=== PATIENT | female | born 1940 | race Caucasian/White ===

== ENCOUNTER 2019-04-18 10:16 | Outpatient (CLI) | payer MEDICARE, BC, SELFPAY ==
[2019-04-18 13:41] LABS: Alanine Aminotransferase 13 U/L (4-35); Albumin Level 4.1 g/dL (3.5-5.1); Alkaline Phosphatase 71 U/L (38-126); Aspartate Amino Transferase 22 U/L (14-36); Bilirubin,Total 0.6 mg/dL (0.2-1.3); Blood Urea Nitrogen 14 mg/dL (7-17); Calcium 9.6 mg/dL (8.4-10.2); Carbon Dioxide 24 mmol/L (22-30); Chloride 103 mmol/L (98-107); Cholesterol 214 mg/dL (0-200); Estimated Glomerular Filt Rate > 60; Glucose 102 mg/dL (65-105); HDL Direct 103 mg/dL; Potassium 4.4 mmol/L (3.4-5.0); Sodium 138 mmol/L (137-145); Triglycerides 65 mg/dL (<150)
[2019-04-18 13:52] LABS: LDL Cholesterol Direct 106 mg/dL
[2019-04-18 13:56] LABS: Vitamin D 25 Hydroxy 57.8 ng/mL
== END 2019-04-18 10:17 | disposition home or self-care (01) ==
LOC: ANHWCLAB 10:20
PROVIDERS: PCP Internal Medicine; Referring Provider Internal Medicine; Visit Provider Nurse Practitioner
DX: E78.5 Hyperlipidemia, unspecified (principal); E55.9 Vitamin D deficiency, unspecified; I10 Essential (primary) hypertension; Z51.81 Encounter for therapeutic drug level monitoring; Z79.891 Long term (current) use of opiate analgesic
CPT/HCPCS: 36415; 80053; 80061; 82306

== ENCOUNTER 2020-06-11 09:49 | Outpatient (CLI) | payer MEDICARE, BC, SELFPAY ==
[2020-06-11 10:39] LABS: Alanine Aminotransferase 11 U/L (4-35); Albumin Level 4.2 g/dL (3.5-5.1); Alkaline Phosphatase 73 U/L (38-126); Anion Gap 5 mmol/L (8-16); Aspartate Amino Transferase 22 U/L (14-36); Bilirubin,Total 0.6 mg/dL (0.2-1.3); Blood Urea Nitrogen 14 mg/dL (7-17); Calcium 9.1 mg/dL (8.4-10.2); Carbon Dioxide 28 mmol/L (22-30); Chloride 105 mmol/L (98-107); Cholesterol 233 mg/dL (0-200); Estimated Glomerular Filt Rate > 60; Glucose 108 mg/dL (65-105); HDL Direct 105 mg/dL; Potassium 4.3 mmol/L (3.4-5.0); Sodium 138 mmol/L (137-145); Triglycerides 73 mg/dL (<150)
[2020-06-11 10:50] LABS: LDL Cholesterol Direct 92 mg/dL
== END 2020-06-11 09:50 | disposition home or self-care (01) ==
LOC: ANHLAB 10:05
PROVIDERS: PCP Internal Medicine; Visit Provider Nurse Practitioner
DX: Z78.0 Asymptomatic menopausal state (principal); E78.5 Hyperlipidemia, unspecified; F32.9 Major depressive disorder, single episode, unspecified
CPT/HCPCS: 36415; 80053; 80061; 84443

== ENCOUNTER 2020-07-04 15:18 | Outpatient (CLI) | payer MEDICARE, BC, SELFPAY ==
--- NOTE | ~2020-07-04 | MM_ITS ---
EXAMINATION: MM screening [facility] BI w gabrielle HISTORY: Screening mammogram TECHNIQUE: Craniocaudal and mediolateral oblique 3-D tomosynthesis images were obtained and synthetic 2-D images were generated. CAD analysis was submitted and interpreted. COMPARISON: 02/09/2018, 02/14/2016, 02/05/2016, 01/30/2015 BREAST PARENCHYMAL COMPOSITION: The breasts are almost entirely fatty. FINDINGS: RIGHT BREAST: There is no evidence of suspicious mass, calcification, or architectural distortion to suggest malignancy. There has been no significant interval change. LEFT BREAST: There are grouped indeterminate calcifications in the middle third of the lower breast a t the 6:00 location 8 cm from the nipple. IMPRESSION: 1. Indeterminate left breast calcifications. 2. Magnification views are recommended. BI-RADS Category 0: Incomplete: Needs additional imaging evaluation. Reviewed, dictated and finalized at location A.
== END 2020-07-04 15:19 | disposition home or self-care (01) ==
LOC: ANHIMG 15:19
PROVIDERS: PCP Internal Medicine; Visit Provider Internal Medicine
DX: Z12.31 Encounter for screening mammogram for malignant neoplasm of breast (principal); R92.8 Other abnormal and inconclusive findings on diagnostic imaging of breast
CPT/HCPCS: 77063; 77067

== ENCOUNTER 2020-08-03 13:02 | Outpatient (CLI) | payer MEDICARE, BC, SELFPAY ==
--- NOTE | ~2020-08-03 | MMUS_ITS ---
EXAMINATION: MM diagnostic mammo unilat LT, US breast LT limited HISTORY: Left breast calcification follow-up TECHNIQUE: Additional 3-D ML tomosynthesis images of left breast were performed and synthetic 2-D kristel ges were generated. Magnification ML, MLO and craniocaudal views. CAD analysis was submitted and inte rpreted. High resolution lower outer and lower inner quadrant and left breast ultrasound was performe d. COMPARISON: 07/04/2020 bilateral digital screening mammogram BREAST PARENCHYMAL COMPOSITION: The breasts are almost entirely fatty. FINDINGS: MAMMOGRAPHIC FINDINGS: Occasional benign calcifications are noted. There is a circumscribed approximately 5.5 mm opacity in the lower mid left breast. ULTRASOUND: 5:00 5 cm from nipple: 3.4 x 5 x 6.1 mm sonolucency consistent with simple cyst. No suspicious mass or shadowing is detected. IMPRESSION: 1. Benign finding; no mammographic evidence of malignancy 2. Routine mammographic screening is recommended. BI-RADS Category 2: Benign finding(s). Reviewed, dictated and finalized at location A. IMPRESSION: 1. Benign finding; no mammographic evidence of malignancy 2. Routine mammographic screening is recommended. BI-RADS Category 2: Benign finding(s).
== END 2020-08-03 13:03 | disposition home or self-care (01) ==
PROVIDERS: PCP Internal Medicine; Visit Provider Nurse Practitioner
DX: R92.8 Other abnormal and inconclusive findings on diagnostic imaging of breast (principal)
CPT/HCPCS: 76642; 77065

== ENCOUNTER 2020-12-20 09:06 | Outpatient (CLI) | payer MEDICARE, BC, SELFPAY ==
[2020-12-20 12:36] LABS: Alanine Aminotransferase 12 U/L (4-35); Albumin Level 4.1 g/dL (3.5-5.1); Alkaline Phosphatase 69 U/L (38-126); Anion Gap 8 mmol/L (8-16); Aspartate Amino Transferase 22 U/L (14-36); Bilirubin,Total 0.7 mg/dL (0.2-1.3); Blood Urea Nitrogen 12 mg/dL (7-17); Calcium 9.6 mg/dL (8.4-10.2); Carbon Dioxide 25 mmol/L (22-30); Chloride 103 mmol/L (98-107); Cholesterol 216 mg/dL (0-200); Estimated Glomerular Filt Rate > 60; Glucose 110 mg/dL (65-110); HDL Direct 99 mg/dL; Potassium 4.3 mmol/L (3.4-5.0); Sodium 136 mmol/L (137-145); Triglycerides 66 mg/dL (<150)
[2020-12-20 12:47] LABS: LDL Cholesterol Direct 99 mg/dL
[2020-12-20 12:53] LABS: Vitamin D 25 Hydroxy 85.9 ng/mL
== END 2020-12-20 09:07 | disposition home or self-care (01) ==
LOC: ANHWCLAB 09:11
PROVIDERS: PCP Internal Medicine; Visit Provider Internal Medicine
DX: E55.9 Vitamin D deficiency, unspecified (principal); E78.5 Hyperlipidemia, unspecified; I10 Essential (primary) hypertension; Z79.899 Other long term (current) drug therapy
CPT/HCPCS: 36415; 80053; 80061; 82306

== ENCOUNTER 2021-07-29 10:33 | Outpatient (CLI) | payer MEDICARE, BC, SELFPAY ==
[2021-07-29 13:11] LABS: Appearance Urine Slightly Cloudy (Clear); Bilirubin Urine Negative (Negative); Blood Urine Negative (Negative); Color Urine Yellow (Yellow); Glucose Urine UA Negative (Negative); Ketones Urine Trace mg/dL (Negative); Leukocyte Esterase Ur 1+ LEU/UL (Negative); Nitrate Urine Positive (Negative); Protein Urine Negative (Negative); Specific Grav Ur 1.025 (1.001-1.035); pH Urine 6.5 (5.0-9.0)
[2021-07-29 13:16] LABS: Bacteria Urine Trace /hpf; Mucus Urine Rare /lpf; Squamous Epithelial Cell Urine Occasional /hpf (Few)
[2021-07-29 13:17] LABS: Add Urine Microscopic? YES
[2021-07-29 13:26] LABS: Alanine Aminotransferase 12 U/L (6-35); Alkaline Phosphatase 81 U/L (38-126); Anion Gap 6 mmol/L (8-16); Aspartate Amino Transferase 22 U/L (14-36); Bilirubin,Total 0.7 mg/dL (0.2-1.3); Blood Urea Nitrogen 15 mg/dL (7-17); Calcium 8.9 mg/dL (8.4-10.2); Carbon Dioxide 25 mmol/L (22-30); Chloride 104 mmol/L (98-107); Cholesterol 232 mg/dL (0-200); Estimated Glomerular Filt Rate > 60; Glucose 115 mg/dL (65-110); HDL Direct 106 mg/dL; Potassium 4.4 mmol/L (3.4-5.0); Sodium 135 mmol/L (137-145); Triglycerides 64 mg/dL (<150)
[2021-07-29 13:27] LABS: Albumin Level 4.5 g/dL (3.5-5.1)
[2021-07-29 13:35] LABS: LDL Cholesterol Direct 89 mg/dL
== END 2021-07-29 10:34 | disposition home or self-care (01) ==
LOC: ANHWCLAB 10:38
PROVIDERS: PCP Internal Medicine; Visit Provider Nurse Practitioner
DX: R39.15 Urgency of urination (principal); E78.5 Hyperlipidemia, unspecified
CPT/HCPCS: 36415; 80053; 80061; 81001; 87077; 87086; 87186

== ENCOUNTER 2022-03-27 10:15 | Emergency (ER) | payer MEDICARE, BC, SELFPAY ==
--- NOTE | 2022-03-27 10:18 | ED.UPPEXIN ---
HPI - Extremity Injury (Upper) General Chief Complaint: Extremity Injury, Upper Stated Complaint: R ARM PAIN Time Seen by Provider: 03/27/22 10:19 Source: patient and RN notes reviewed History of Present Illness HPI narrative: Patient is an 82-year-old female who presents to urgent care with complaints right pain near the right elbow. Patient states that she has seen some redness and swelling. Patient states that has been ongoing for several days and reports no associated symptoms or trauma. Patient states that she can not move the arm without any pain or discomfort however leaning on the arm causes exacerbated pain. Patient denies of any falls. States that she has taken Tylenol this morning. Patient does admit to sitting in the recliner most days with her arm on the arm rest. No other acute complaints. No acute distress noted. Patient aware of the plan of care. Some parts of this dictation were generated by voice recognition software and may contain typographical and/or grammatical inaccuracies. Related Data Home Medications Medication Instructions Recorded Confirmed cholecalciferol (vitamin D3) 25 25 mcg PO DAILY 04/11/19 03/27/22 mcg (1,000 unit) tablet cyanocobalamin (vitamin B-12) 1,000 mcg PO DAILY 04/11/19 03/27/22 1,000 mcg capsule lactobacillus combination no.8 3 3,000 mmu cells PO DAILY 04/11/19 03/27/22 billion cell capsule (Adult Probiotic) cranberry 500 mg capsule 500 mg PO DAILY 12/25/20 03/27/22 Allergies Allergy/AdvReac Type Severity Reaction Status Date / Time hydrocodone AdvReac Severe Nausea and Verified 03/27/22 10:28 Vomiting Review of Systems Review of Systems: CONSTITUTIONAL: Denies fever, chills, or sweats. EYES: Denies visual changes, redness, or discharge. ENT: Denies rhinorrhea, congestion, sore throat, or otalgia. CARDIOVASCULAR: Denies chest pain, palpitations, or edema. RESPIRATORY: Denies cough or dyspnea. GASTROINTESTINAL: Denies abdominal pain, nausea, vomiting, or diarrhea. GENITOURINARY: Denies dysuria or hematuria. SKIN: Denies rash or itching. MUSCULOSKELETAL: Reports of redness and pain to the right arm NEUROLOGIC: Denies headache, numbness, or weakness. All other systems reviewed are negative, except as documented in HPI. [facility] Past Medical History Medical History COVID-19 Depression Hx of colonic polyp Postmenopausal Screening for breast cancer Family History Family History Sibling Family history of throat cancer Patient's sister is in good health Patient's brother is in good health Patient's brother is Father Carcinoma of colon Patient's father is Mother Family history of lung cancer Patient's mother is Social History Social History (Updated 02/05/22 @ 10:23 by JOSUE Babin) Smoking status: Never smoker Second hand tobacco smoke exposure: No Alcohol intake: current Drinks per week: 12 Substance use: never Substance use type: does not use Lack of Transportation: No Lack of Food: Never True Current Housing: I Have Housing Concerned About Future Housing: No Difficulty Paying Gas/Electric Bills: No Difficulty Paying for Meds: No Currently Unemployed: No Education: High School Diploma/GED Difficulty w/ Childcare or Family Care: No Comments At the time of my signature, I reviewed and agree with the nursing past medical, surgical, social, and family history. There is no relevant family history pertinent to the patient complaint. Exam Narrative: GENERAL: This is a well-nourished, well-developed patient, in no apparent distress. HEAD: normocephalic, atraumatic. EYES: PERRL. Sclera clear/white. Vision is grossly intact. EARS: External ears normal NOSE: External nose normal with no obvious nasal discharge, nares without
[2022-03-27 10:31] VITALS: BP 149/88; PULSE 86; RESP 16; TEMP 35.6; O2SAT 98
== END 2022-03-27 11:05 | disposition home or self-care (01) ==
PROVIDERS: Emergency Provider Nurse Practitioner Family; PCP Internal Medicine
DX: M79.601 Pain in right arm (principal); Z86.16 Personal history of COVID-19
CPT/HCPCS: 99213; G0463

== ENCOUNTER 2022-08-12 09:31 | Outpatient (CLI) | payer MEDICARE, BC, SELFPAY ==
[2022-08-12 17:13] LABS: Alanine Aminotransferase 16 U/L (6-35); Albumin Level 4.2 g/dL (3.5-5.1); Alkaline Phosphatase 74 U/L (38-126); Anion Gap 5 mmol/L (8-16); Aspartate Amino Transferase 44 U/L (14-36); Bilirubin,Total 0.7 mg/dL (0.2-1.3); Blood Urea Nitrogen 14 mg/dL (7-17); Calcium 8.8 mg/dL (8.4-10.2); Carbon Dioxide 26 mmol/L (22-30); Chloride 101 mmol/L (98-107); Cholesterol 206 mg/dL (0-200); Estimated Glomerular Filt Rate > 60; Glucose 97 mg/dL (65-110); HDL Direct 107 mg/dL; Potassium 4.4 mmol/L (3.4-5.0); Sodium 132 mmol/L (137-145); Triglycerides 61 mg/dL (<150)
[2022-08-12 17:23] LABS: LDL Cholesterol Direct 81 mg/dL
[2022-08-12 17:26] LABS: Vitamin D 25 Hydroxy 48.6 ng/mL
[2022-08-12 19:13] LABS: Appearance Urine Clear (Clear); Bilirubin Urine Negative (Negative); Blood Urine Trace-lysed (Negative); Color Urine Yellow (Yellow); Glucose Urine UA Negative (Negative); Ketones Urine Negative (Negative); Nitrate Urine Positive (Negative); Protein Urine Negative (Negative); Specific Grav Ur 1.025 (1.001-1.035); Urobilinogen Urine 0.2 mg/dL (<2.0)
[2022-08-12 19:22] LABS: Add Urine Microscopic? YES
[2022-08-12 19:24] LABS: Leukocyte Esterase Ur 2+ LEU/UL (Negative)
[2022-08-12 19:26] LABS: WBC Urine 31-50 /hpf (0-3)
[2022-08-12 19:27] LABS: Squamous Epithelial Cell Urine Rare /hpf (Few)
[2022-08-12 19:28] LABS: Bacteria Urine 4+ /hpf
== END 2022-08-12 09:32 | disposition home or self-care (01) ==
LOC: ANHWCLAB 09:33
PROVIDERS: PCP Internal Medicine; Visit Provider Nurse Practitioner
DX: E78.5 Hyperlipidemia, unspecified (principal); F32.9 Major depressive disorder, single episode, unspecified; E53.8 Deficiency of other specified B group vitamins; E55.9 Vitamin D deficiency, unspecified; R39.9 Unspecified symptoms and signs involving the genitourinary system
CPT/HCPCS: 36415; 80053; 80061; 81001; 82306; 82607; 84443; 87077; 87086; 87186

== ENCOUNTER 2023-01-23 10:05 | Outpatient (CLI) | payer MEDICARE, BC, SELFPAY ==
[2023-01-23 11:43] LABS: Appearance Urine Cloudy (Clear); Bacteria Urine 4+ /hpf; Bilirubin Urine Negative (Negative); Blood Urine Negative (Negative); Color Urine Yellow (Yellow); Glucose Urine UA Negative (Negative); Ketones Urine Trace mg/dL (Negative); Leukocyte Esterase Ur 1+ LEU/UL (Negative); Nitrate Urine Negative (Negative); Non Pathogenic Casts 0-2; Protein Urine Negative (Negative); RBC Urine 0-2 /hpf (0-2); Squamous Epithelial Cell Urine Occasional /hpf (Few); pH Urine 5.5 (5.0-9.0)
[2023-01-23 11:49] LABS: Add Urine Microscopic? YES
== END 2023-01-23 10:06 | disposition home or self-care (01) ==
PROVIDERS: PCP Family Medicine; Visit Provider Nurse Practitioner
DX: R39.9 Unspecified symptoms and signs involving the genitourinary system (principal)
CPT/HCPCS: 81001; 87077; 87086; 87186

== ENCOUNTER 2023-04-01 11:26 | Outpatient (CLI) | payer MEDICARE, BC, SELFPAY ==
[2023-04-01 16:39] LABS: Hematocrit 48.5 % (37.0-47.0); Hemoglobin 15.5 g/dL (12.0-15.0); Mean Corpuscular Hemoglobin 30.8 pg (26-34); Mean Corpuscular Volume 96.2 fl (80-100); Mean Platelet Volume 11.2 fl (7.4-10.4); Platelet Count Result 220 k/mm3 (150-375); Red Blood Count 5.04 M/mm3 (4.2-5.4); Red Cell Distribution Width 14.2 % (11.5-14.5); White Blood Count 5.5 K/mm3 (4.5-10.0)
[2023-04-01 16:42] LABS: Appearance Urine Cloudy (Clear); Bacteria Urine 4+ /hpf; Bilirubin Urine Negative (Negative); Blood Urine Negative (Negative); Color Urine Yellow (Yellow); Glucose Urine UA Negative (Negative); Ketones Urine Negative (Negative); Leukocyte Esterase Ur 1+ LEU/UL (Negative); Nitrate Urine Negative (Negative); Non Pathogenic Casts 0-2; Protein Urine Negative (Negative); RBC Urine 0-2 /hpf (0-2); Specific Grav Ur 1.017 (1.001-1.035); Squamous Epithelial Cell Urine None seen /hpf (Few); pH Urine 6.5 (5.0-9.0)
[2023-04-01 17:10] LABS: Add Urine Microscopic? YES
[2023-04-01 18:22] LABS: Vitamin D 25 Hydroxy 41.9 ng/mL
[2023-04-01 18:35] LABS: LDL Cholesterol Direct 93 mg/dL
[2023-04-01 19:06] LABS: Alanine Aminotransferase 11 U/L (6-35); Albumin Level 4.1 g/dL (3.5-5.1); Alkaline Phosphatase 79 U/L (38-126); Anion Gap 6 mmol/L (8-16); Aspartate Amino Transferase 48 U/L (14-36); Bilirubin,Total 0.6 mg/dL (0.2-1.3); Blood Urea Nitrogen 11 mg/dL (7-17); Calcium 9.2 mg/dL (8.4-10.2); Carbon Dioxide 25 mmol/L (22-30); Chloride 102 mmol/L (98-107); Cholesterol 229 mg/dL (0-200); Estimated Glomerular Filt Rate > 60; Glucose 98 mg/dL (65-110); Potassium 4.3 mmol/L (3.4-5.0); Sodium 133 mmol/L (137-145); Triglycerides 80 mg/dL (<150)
[2023-04-01 19:58] LABS: HDL Direct 115 mg/dL
== END 2023-04-01 11:27 | disposition home or self-care (01) ==
LOC: ANHWCLAB 11:26
PROVIDERS: PCP Nurse Practitioner; Visit Provider Nurse Practitioner
DX: E78.5 Hyperlipidemia, unspecified (principal); N39.0 Urinary tract infection, site not specified; E53.8 Deficiency of other specified B group vitamins; E55.9 Vitamin D deficiency, unspecified
CPT/HCPCS: 36415; 80053; 80061; 81001; 82306; 82607; 85027; 87077; 87086; 87186

== ENCOUNTER 2023-04-10 15:32 | Emergency (ER) | payer MEDICARE, BC, SELFPAY ==
[2023-04-10] VITALS (24 sets, daily range): BP systolic 160–188; BP diastolic 78–101; PULSE 67–82; RESP 11–23; TEMP 36.4–37; O2SAT 92–99
--- NOTE | ~2023-04-10 | XR_ITS ---
EXAM: XR wrist RT 2V DATE: 04/10/2023 22:08 HISTORY: post reduction . COMPARISON: Same date at 7:15 PM. FINDINGS: Interval cast removal. Persistent 3 mm lateral displacement, 5 mm posterior displacement, and 13 mm posterior angulation of the comminuted, intra-articular, distal right radial fracture. Unch anged mildly distracted ulnar styloid fracture. IMPRESSION: Comminuted, intra-articular distal right radial fracture with mild persistent lateral dis placement, posterior displacement, and posterior angulation. Unchanged ulnar styloid fracture. Reviewed, dictated and finalized at location K. PACKER IMPRESSION: Comminuted, intra-articular distal right radial fracture with mild persistent lateral displacement, posterior displacement, and posterior angulati on. Unchanged ulnar styloid fracture.
--- NOTE | ~2023-04-10 | XR_ITS ---
EXAM: XR wrist RT min 3V, XR hand RT min 3V, XR forearm RT 2V DATE: 04/10/2023 19:17 HISTORY: trauma, fall . COMPARISON: None available. FINDINGS: Osseous detail obscured by cast material. Comminuted, intra-articular fracture of the dist al right radius, with 10 mm posterior displacement, 5 mm lateral displacement, and 20 degrees posteri or angulation. Mildly distracted ulnar styloid fracture. Scattered osteoarthritic changes, most sever e at the first carpal metacarpal joint. IMPRESSION: Comminuted, displaced and angulated intra-articular fracture of the distal right radius. Mildly distracted right ulnar styloid fracture. Reviewed, dictated and finalized at location K. RCOACH OPERATOR IMPRESSION: Comminuted, displaced and angulated intra-articular fracture of the distal righ t radius. Mildly distracted right ulnar styloid fracture. IMPRESSION: Comminuted, displaced and angulated intra-articular fracture of the distal righ t radius. Mildly distracted right ulnar styloid fracture.
--- NOTE | 2023-04-10 18:49 | ED.UPPEXIN ---
HPI - Extremity Injury (Upper) General Chief Complaint: Extremity Injury, Upper Stated Complaint: right wrist FX Time Seen by Provider: 04/10/23 18:46 History of Present Illness HPI narrative: Patient is an 83 year old female with history of depression, HLD, HTN, here with right wrist injury. She notes that around 1:00 p.m. today she was moving an area rug in her home when she fell backwards, landing down on to her right wrist. She denies any head trauma. She denies any blood thinner use. She noted immediate deformity to her right wrist. She went to a [facility] urgent care who performed x-rays, noted that both bones in her wrist were broken and displaced and told her she needed to come to the emergency department to get surgery performed. Splint was placed at urgent care. Patient denies any open wounds on the wrist. She endorses normal sensation and movement in her hand. Related Data Home Medications Medication Instructions Recorded Confirmed lactobacillus combination no.8 3 3,000 mmu cells PO DAILY 04/11/19 03/20/23 billion cell capsule (Adult Probiotic) ibuprofen 200 mg capsule (Motrin 200 mg PO BID PRN 08/14/22 03/20/23 IB) lidocaine HCl 4 % topical cream 1 applic topical BID 08/14/22 03/20/23 (Aspercreme (lidocaine HCl)) melatonin 5 mg capsule 5 mg PO DAILY 08/14/22 03/20/23 Allergies Allergy/AdvReac Type Severity Reaction Status Date / Time hydrocodone AdvReac Severe Nausea and Verified 04/10/23 18:24 Vomiting Review of Systems Review of Systems: All systems reviewed & are unremarkable except as noted in HPI and below PMFSH Past Medical History Medical History COVID-19 Depression Hx of colonic polyp Postmenopausal Screening for breast cancer Family History Family History Sibling Family history of throat cancer Patient's sister is in good health Patient's brother is in good health Patient's brother is Father Carcinoma of colon Patient's father is Mother Family history of lung cancer Patient's mother is Social History Social History Smoking status: Never smoker Second hand tobacco smoke exposure: No Alcohol intake: current Drinks per week: 7 Alcohol use details: wine Substance use: never Substance use type: does not use Lack of Transportation: No Lack of Food: Never True Current Housing: I Have Housing Concerned About Future Housing: No Difficulty Paying Gas/Electric Bills: No Difficulty Paying for Meds: No Currently Unemployed: No Education: High School Diploma/GED Difficulty w/ Childcare or Family Care: No Exam Narrative: GENERAL: Well-appearing, well-nourished, and in no acute distress. HEAD: Normocephalic, atraumatic. EYES: PERRLA and EOMI. ENT: Nares clear. Mucous membranes moist. NECK: Supple. CHEST: Clear to auscultation. No respiratory distress. HEART: Regular rate and rhythm. Normal peripheral pulses. ABDOMEN: Soft, nontender, nondistended. EXTREMITIES: Decreased range of motion of the right wrist due to pain. Diffuse tenderness throughout the wrist with ecchymosis and edema present. Ecchymosis seems to extend into the lateral aspect of her hand over the 5th metacarpal. Strong radial pulse palpated. Normal sensation and capillary refill in the hand. Elbow nontender, shoulder nontender. No additional extremity injuries appreciated. SKIN: Warm, dry, no rash. NEURO: No focal deficits. Alert and oriented x3. PSYCH: Normal mood and affect. Course Course Emergency Course: Chart review performed. Patient here after a trip and fall injuring her right wrist. Reportedly went to [facility] urgent care and they told her she needed surgery and sent her here. Triage vitals show HTN, otherwise normal. PCP note from 03/20/23
[2023-04-10] MEDS: ONDANSETRON HCL ODT 4 MG TABLET PO (19:30)
[2023-04-10] MEDS: HYDROcodone/acetaminophen (*CRX) 5-325 MG TABLET 1 TAB PO (19:31)
[2023-04-10] MEDS: PROPOFOL IV EMULSION 200 MG/20 ML VIAL 70 MG IV PUSH (21:42)
[2023-04-10] MEDS: SODIUM CHLORIDE 0.9% IV 1,000 ML 1000 ML (21:55)
[2023-04-10] MEDS: fentaNYL CITRATE INJ (*CRX) 100 MCG/2 ML VIAL 50 MCG IV PUSH (22:00)
--- NOTE | 2023-05-07 15:14 | PC.NURSE ---
LATE ENTRY This note is being entered to document information to the patient's record. The following information was omitted on [04/10/2023], by [Apoorva oRb RN]. following chart review, to clarify, MD Dr. Mac administered Propofol 90mg IVP @2142.
== END 2023-04-10 23:01 | disposition home or self-care (01) ==
PROVIDERS: Emergency Provider Student in an Organized Health Care Education/Training Program; PCP Nurse Practitioner
DX: S52.531A Colles' fracture of right radius, initial encounter for closed fracture (principal); S52.611A Displaced fracture of right ulna styloid process, initial encounter for closed fracture; E78.5 Hyperlipidemia, unspecified; I10 Essential (primary) hypertension; W18.39XA Other fall on same level, initial encounter; Y92.009 Unspecified place in unspecified non-institutional (private) residence as the place of occurrence of the external cause
CPT/HCPCS: 25624; 73090; 73100; 73110; 73130; 99285; A9270; J2704; J3010; J7030

== ENCOUNTER 2023-04-13 11:50 | Outpatient (CLI) | payer MEDICARE, BC, SELFPAY ==
--- NOTE | ~2023-04-13 | CT_ITS ---
EXAMINATION: CT wrist RT wo con DATE: 04/13/2023 12:16 INDICATION: Right wrist pain with recent fracture TECHNIQUE: High resolution computed tomography (CT) of the right wrist was performed without intraven ous contrast. Additional sagittal and coronal reconstructions were performed. Automated exposure cont rol and iterative reconstruction technique were employed. The dose-length product was 450.96 mGy-cm. COMPARISON: None FINDINGS: There is a comminuted intra-articular fracture of the distal right radius. The distal fragments are d isplaced approximately 1 cm dorsal and 5 mm radial displacement. There is also dorsal impaction with approximately 25 degrees dorsal tilt of the majority of the distal articular surface. There is no sig nificant fracture gap or incongruity along the intra-articular fracture line which crosses the lunate fossa. Fracture fragment comprising the volar side of the metaphyseal fragment situated between the main proximal fragment in the distal articular surface containing fragment. This fragment is angulate d dorsally but remains nondisplaced relative to the both the main proximal and distal fragments. Ther e is mild distraction of a posterior fracture arising from the ulnar styloid process. 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 Severe osteoarthritis at the first carpometacarpal joint and moderate osteoarthritis at the triscaph e and first, second and fifth metacarpophalangeal joints. Mild osteoarthritis at many of the remainin g joints in the visualized hand and wrist. IMPRESSION: 1. Comminuted intra-articular fracture of the distal right radius. 2. Minimally distracted ulnar styloid avulsion fracture. 3. 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 4. 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 Reviewed, dictated and finalized at location A. ION USHER IMPRESSION: 1. Comminuted intra-articular fracture of the distal right radius. 2. Minimally distracted ulnar styloid avulsion fracture. 3. 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 4. 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
== END 2023-04-13 11:51 | disposition home or self-care (01) ==
PROVIDERS: PCP Nurse Practitioner; Visit Provider Orthopaedic Surgery
DX: M19.031 Primary osteoarthritis, right wrist (principal)
CPT/HCPCS: 73200

== ENCOUNTER 2024-04-08 10:44 | Outpatient (CLI) | payer MEDICARE, BC, SELFPAY ==
--- OUTSIDE RECORDS SUMMARY | 2024-04-08 10:56 | XMS_ITS | Clinical Summary ---
Author Organization [facility] [employer] Address [address] [place] [address] Care Team Providers Care Homebound Teacher Name Role Phone Lani Chirinos MD Primary Care Provider [phone] Williams Adorno MD Unavailable [phone] Source Comments [facility],non-owned Affiliates and Associated Physician Practices is amultiple site organization consisting of ambulatory clinics and hospital sitesin [place], [place], [place] and [place]. This disclosure is being madepursuant to the Care Everywhere program and may not contain all information available regarding this patient. Last updated 17.[facility] [employer] Allergies Active Allergy Reactions Criticality Noted Date Comments Hydrocodone Nausea and/or Vomiting 02/11/2013 Medications * Be aware that medications may not be up to date on this document. Alwaysverify current medications with the patient. Medication Sig Dispensed Refills Start Date End Date Status lansoprazole, disintegrating, (PREVACID SOLUTAB) 30 MG tablet Take 30 mg by mouth 2 times daily,before breakfast and supper. Take morning of surgery Active citalopram (CELEXA) 20 MG tablet Take 20 mg by mouth once daily. Active rosuvastatin (CRESTOR) 5 MG tablet Take 5 mg by mouth at bedtime. Active losartan (COZAAR) 25 MG tablet Take 25 mg by mouth at bedtime. Active SUMAtriptan (IMITREX) 25 MG tablet Take 25 mg by mouth once as needed. Active Probiotic Product (PROBIOTIC DAILY PO) Take by mouth. Active Cholecalciferol (D3 ADULT PO) Take 1,000 Units by mouth. Stop 10 days before surgery Active Cyanocobalamin (B-12) 1000 MCG TBCR Take by mouth once daily. Stop 10 days before surgery Active montelukast (SINGULAIR) 10 MG tablet Take 10 mg by mouth at bedtime. Active Carvedilol (COREG PO) Take 12.5 mg by mouth. Active traMADol (ULTRAM) 50 MG tablet Take 1 Tab by mouth every 6 hours as needed. Called to [facility] [phone] 09/07/2013 Active acetaminophen (TYLENOL) 325 MG tablet Take 2 Tabs by mouth every 4 hours as needed. Maximum allowable Acetaminophen amount = 4 Grams (4000 mg) / 24 hours. 09/07/2013 Active celecoxib (CELEBREX) 200 MG capsule Take 1 Cap by mouth 2 times daily. 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 04/01/2013 Overview (05/19/2015): 2015 IMO Updt Social History Tobacco Use Types Packs/Day Years Used Date Smoking Tobacco: Never Smokeless Tobacco: Never Tobacco Cessation:Counseling Given: Yes Alcohol Use Standard Drinks/Week Comments Yes 5.8 (1 standard drink = 0.6 oz p ure alcohol) Sex and Gender Information Value Date Recorded Sex Assigned at Not on file Gender Identity Not on file Sexual Orientation Not on file Last Filed Vital Signs Vital Sign Reading Time Taken Comments Blood Pressure 123/73 09/30/2013 10:13 AM CDT Pulse 74 09/30/2013 10:13 AM CDT Temperature 36.9 C (98.4 F) 09/08/2013 5:19 AM CDT Respiratory Rate 16 09/08/2013 5:19 AM CDT Oxygen Saturation 95% 09/08/2013 5:19 AM CDT Inhaled Oxygen Concentration - - Weight 80.7 kg (178 lb) 09/05/2013 7:04 AM CDT Height 167.6 cm (5' 6 ) 09/05/2013 7:04 AM CDT Body Mass Index 28.73 09/05/2013 7:04 AM CDT Plan of Treatment Health Maintenance Due Date Last Done Comments BONE DENSITY TESTING 1940 MEDICARE AWV 12 MONTHS 1938 DTAP/TDAP/TD VACCINES (1 - Tdap) 1957 PNEUMOCOCCAL VACCINE 50+ (1 of 1 - PCV) 1988 ZOSTER VACCINE (1 of 2) 1988 Respiratory Syncytial Virus (RSV) Vaccine Pt: or over 60 yrs (1 - 1-dose 75+ series) 2013 COVID-19 VACCINE ( - 2023-2 5 season) 2023 INFLUENZA VACCINE (#1) 2023 DEPRESSION SCREENING 02/24/2024 HEPATITIS B VACCINE Aged Out No longe r eligible based on patient's age to complete this topic HIB VACCINE Aged Out No longer eligi ble based on patient's age to complete this topic HPV VACCINE Aged Out No longer eligi ble based on patient's age to complete this topic MENINGOCOCCAL (Group B) VACCINE Aged Out No longer eligible based on patient's age to complete this topic MENINGOCOCCAL VACCINE Aged Out No shawn romeo eligible based on patient's age to complete this topic Medical Devices Implanted Type Area Fire Engine Pump Operator Device Identifier Shelf Expiration Date Model / Serial / Lot Werner Bone [place] Hv Implanted:Qty: 1 on 09/05/2013 by Williams Adorno MD at [facility] Left: [employer]nee [employer] 12/24/2014 [id number] / / [id number] Butn Pat Arcom Wire Polyeth Sm 31 X 8mm Implanted:Qty: 1 on 09/05/2013 by Williams Adorno MD at [facility] Left: [employer]nee [employer] 06/23/2018 [id number] / / [id number] Ins Kn [place]urd Fem Cocr L-Intlok 65.0mm Implanted:Qty: 1 on 09/05/2013 by Williams Adorno MD at [facility] Left: [employer] 06/24/2023 [id number] / / [id number] Ty Tibial I Beam Fix Bar 71mm Implanted:Qty: 1 on 09/05/2013 by Williams Adorno MD at [facility] Left: [employer]nee [employer] 05/25/2023 [id number] / / [id number] Brdg Tib Niurka Stbl Implanted:Qty: 1 on 09/05/2013 by Williams Adorno MD at [facility] Left: [employer]nee [employer] 05/24/2018 [id number] / / [id number] Advance Directives * Full Code (Latest Code Status on File) Date Activated Date Inactivated Comments 09/05/2013 11:43 AM 09/08/2013 1:17 PM Care Teams Homebound Teacher Relationship Specialty Start Date End Date Lani Chirinos MD [address] [place] [phone] PCP - General Family Medicine 02/11/13 [place] [address] [address] Orthopedic Surgery 02/11/13
--- OUTSIDE RECORDS SUMMARY | 2024-04-08 10:56 | XMS_ITS | Encounter Summary ---
Author Organization [facility] Address [address] [place] [address] Care Team Providers Care Community Planner Name Role Phone Lani Chirinos MD Primary Care Provider [phone] Williams Adorno MD Unavailable [phone] Encounter Details Date Type Department Care Team (Late st Contact Info) Description 01/10/2014 Therapy Visit [facility] [address] [facility] [address] [place] [address] [place] [address] [facility] [address] [place] [address] Social History Tobacco Use Types Packs/Day Years Used Date Smoking Tobacco: Never Smokeless Tobacco: Never Alcohol Use Standard Drinks/Week Comments Yes 5.8 (1 standard drink = 0.6 oz p ure alcohol) Sex and Gender Information Value Date Recorded Sex Assigned at Not on file Gender Identity Not on file Sexual Orientation Not on file documented as of this encounter Functional Status Functional Status Response Date of Assess ment Is person deaf or have serious hearing difficult y? No 09/05/2013 Is person blind or have serious difficulty seein g? No 09/05/2013 Does person have serious dif ficulty walking/climbing stairs? No 09/05/2013 Does person have difficulty dressing/bathing? No 09/05/2013 Does person have difficulty doing errands alone? Yes 09/05/2013 Cognitive Status Response Date of Assessm ent Does person have difficulty concentrating/remembering/making decisions? No 09/05/2013 documented as of this encounter Plan of Treatment Not on file documented as of this encounter Visit Diagnoses Not on filedocumented in this encounter Care Teams Community Planner Relationship Specialty Start Date End Date Lani Chirinos MD [address] [place] [phone] PCP - General Family Medicine 02/11/13 [place] [address] [address] Orthopedic Surgery 02/11/13 documented as of this encounter
--- OUTSIDE RECORDS SUMMARY | 2024-04-08 10:56 | XMS_ITS | Referral Summary ---
Author Organization [facility] Address [address] [place] [address] Care Team Providers Care Shaft Tender Name Role Phone Cheikh Pizano Primary Care Provider [phone] Allergies Active Allergy Reactions Criticality Noted Date Comments Derik Inhibitors Cough Low Hydrocodone Nausea only Medium Medications losartan (COZAAR) 25 mg tablet take 1 tablet by oral route every day 0 0 05/13/19 14 Active Additional Information Patient taking differently:25 mgoral Nightly, Indications: hypertension, Informant: Self, Reported on 04/15/2023 lansoprazole (PREVACID) 30 mg capsule take 1 capsule by oral route every day 0 0 05/13/19 14 Active Additional Information Patient taking differently:30 mgoral Nightly, Indications: Treatment of Non-Bleeding Gastric Disorder, Informant: Self, Reported on 04/15/2023 sertraline (ZOLOFT) 25 mg tablet take 1 tablet by oral route every day 0 0 05/21/19 16 Active Additional Information Patient taking differently: 100 mg oral Every morning, Indications: depression, Informant: Self, Reported on 04/15/2023 atorvastatin (LIPITOR) 10 mg tablet take 1 tablet by oral route every day 0 0 06/03/19 17 Active Additional Information Patient taking differently:10 mgoral Nightly, Indications: hyperlipidemia, Informant: Self, Reported on 04/15/2023 carvedilol (COREG) 12.5 mg tablet TAKE 1 TABLET BY MOUTH TWICE A DAY WITH FOOD 180 3 06/28/19 14 Active Additional Information Patient taking differently:12.5 mgoral 2 times daily with meals (bkfst, dinner), Indications: hypertension, Informant: Self, Reported on 04/15/2023 Lactobacillus acidophilus (PROBIOTIC) 10 billion cell capsule 0 0 12/23/19 15 Active Additional Information Patient taking differently: 1 capsule oral Nightly, Indications: supplement, Informant: Self, Reported on 04/15/2023 amoxicillin-clavul anate (AUGMENTIN) 875-125 mg per tabletIndications: Urinary Tract/Genitourinar y Infection Take 1 tablet by mouth 2 (two) times a day Stopped taking 04/05/19 24 Active ondansetron ODT (ZOFRAN-ODT) 4 mg disintegrating tablet Take 1 tablet (4 mg total) by mouth every 8 (eight) hours as needed for vomiting or nausea Only will take if she takes tramadol , has not started 04/11/19 24 Active traMADoL (ULTRAM) 50 mg tablet Take 1 tablet (50 mg total) by mouth every 8 (eight) hours as needed for pain Pt has not taken this yet will only take if needed. NOT STARTED YET 04/11/19 24 Active melatonin 5 mg tabletIndications: sleep Take 1 tablet (5 mg total) by mouth nightly Active methocarbamoL (ROBAXIN) 750 mg tablet Take 1 tablet (750 mg total) by mouth 4 (four) times a day Not taking, never started Active lidocaine HCL 4 % cream Apply topically as needed (pain) Active ibuprofen 200 mg tab/cap Take 2 tablet/capsule (400 mg total) by mouth every 8 (eight) hours as needed for pain Active acetaminophen (TYLENOL) 500 mg tabletIndications: Pain Take 1 tablet (500 mg total) by mouth 3 (three) times a day Active LORazepam (ATIVAN) 0.5 mg tabletIndications: anxiety Take 1 tablet (0.5 mg total) by mouth every 6 (six) hours as needed for anxiety Active docusate sodium (COLACE) 100 mg capsuleIndications :constipation Take 1 capsule (100 mg total) by mouth 2 (two) times a day as needed for constipation Active lisinopriL (PRINIVIL,ZESTRIL) 10 mg tablet Active sertraline (ZOLOFT) 100 mg tablet Take 1 tablet (100 mg total) by mouth daily 05/04/19 24 Active Active Problems Problem Noted Date Diagnosed Date Abdominal pain 06/02/2023 Acquired trigger finger 06/02/2023 Allergic rhinitis 06/02/2023 Anxiety 06/02/2023 Depressive disorder 06/02/2023 Hyperlipidemia 06/02/2023 Involuntary movements 06/02/2023 Palpitations 06/02/2023 Sinusitis 06/02/2023 Upper respiratory infection 06/02/2023 Urinary incontinence 06/02/2023 Urinary tract infectious disease 06/02/2023 Vitamin D deficiency 06/02/2023 Closed fracture of distal end of radius 04/13/19 24 Pain in right hand 04/12/2023 Pure hypercholesterolemia 10/19/2018 Assessment & Plan (10/19/2018 2:28 PM CDT): On chronic lipid lowering therapy with good control. No changes made. 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 She is on the same treatment now. Today's echocardiogram shows no recurrence of cardiomyopathy. Continue current medications. Gastroesophageal reflux disease 12/22/2014 Overview (06/02/2023): GERD Essential hypertension 12/22/2014 Overview (06/02/2023): Hypertension Assessment & Plan (10/19/2018 2:27 PM CDT): Blood pressure is adequately controlled on current regimen. No change was made. Rupture of biceps tendon 10/18/2008 Immunizations Name Administration Dates Next Due Influenza, Quadrivalent, Hig h Dose, Preservative Free, Intrr 11/10/2019 Influenza, Trivalent, Adjuva nted, Intramuscular 12/02/2018 Influenza, Trivalent, High D ose, Split, Preservative Free, Intramuscular 12/16/2017,12/09/2016,12/12/2015,12/20,11/21/2013,11/23/2012 Influenza, Trivalent, IM (MDV) 12/18/2011 Pfizer SARS-CoV-2 Monovalent Vaccination (12+ Yrs) PURPLE 04/27/2020,04/06/2020 Pneumococcal Conjugate PCV 13 12/24/2015 Pneumococcal Polysaccharide PPV23 12/09/2007 Tdap 03/15/2012 ZOSTER LIVE 02/02/2008 Social History Tobacco Use Types Packs/Day Years Used Date Smoking Tobacco: Never Smokeless Tobacco: Never Alcohol Use Standard Drinks/Week Comments Yes 0 (1 standard drink = 0.6 oz pur e alcohol) AUDIT-C Answer Date Recorded Q1: How often do you have a drink containing alcohol? 4 or more times a week 04/15/2023 Q2: How many drinks containi ng alcohol do you have on a typical day when you are drinking? 1 or 2 Q3: How often do you have si x or more drinks on one occasion? Never 04/15/2023 Personal Safety Answer Date Recorded Have you ever been in or are you currently in a harmful physical or emotional relationship or is someone making you feel afraid or unsafe? Denies 04/20/2023 Comments No Sex and Gender Information Value Date Recorded Sex Assigned at Not on file Legal Sex Female 1:19 AM AUTOMOTIVE INSTRUCTOR Gender Identity Not on file Sexual Orientation Not on file Last Filed Vital Signs Vital Sign Reading Time Taken Comments Blood Pressure 131/70 04/20/2023 2:00 PM AUTOMOTIVE INSTRUCTOR Pulse 79 04/20/2023 2:05 PM AUTOMOTIVE INSTRUCTOR Temperature 36.1 C (97 F) 04/20/2023 1:38 PM AUTOMOTIVE INSTRUCTOR Respiratory Rate 10 04/20/2023 2:05 PM AUTOMOTIVE INSTRUCTOR Oxygen Saturation 91% 04/20/2023 2:05 PM AUTOMOTIVE INSTRUCTOR Inhaled Oxygen Concentration - - Weight 72.6 kg (160 lb) 04/15/2023 8:20 AM AUTOMOTIVE INSTRUCTOR Height 165.1 cm (5' 5 ) 04/15/2023 8:20 AM AUTOMOTIVE INSTRUCTOR Body Mass Index 26.63 04/15/2023 8:20 AM AUTOMOTIVE INSTRUCTOR Plan of Treatment Not on file Medical Devices Implanted Type Area Community Coordinator Device Identifier Shelf Expiration Date Model / Serial / Lot [employer] Aptus Trilock [id number] 10 Hole Right Distal Volar Radius A-4750.32 - [id number] Implanted:Qty: 1 on 04/20/2023 by Aiden Victor MD at [facility] [place] Right: Radius [employer] A-4750.32 / / [employer] Aptus 2.5mm 12mm Cortical Screw Bone A-5700.12 - [id number] Implanted:Qty: 3 on 04/20/2023 by Aiden Victor MD at [facility] Right: Radius [employer] A-5700.12 / / [employer] 2.5mm 16mm Trilock Hexadrive Wrist Radius Screw Bone A-5750.16/1 - [id number] Implanted:Qty: 2 on 04/20/2023 by Aiden Victor MD at [facility] [place] Right: Radius [employer] A-5750.16/1 / / [employer] Aptus Trilock 2.5mm 18mm Hexadrive 7 Adaptive Wrist Radius A-5750.18/1 - [id number] Implanted:Qty: 4 on 04/20/2023 by Aiden Victor MD at [facility] [place] Right: Radius [employer] A-5750.18/1 / / Insurance MEDICARE [facility] [employer] MEDICARE [facility] MEDICARE [facility] [employer] Member Subscriber Plan / Payer (Ef fective 2015-Present) Name:Mini Lion Relation to Subscriber:Self Name:Mini Lion Payer ID:[id number] (NAIC) Group ID:[id number] Type:[facility] Address: [address] [place] [id number] Care Teams Shaft Tender Relationship Specialty Start Date End Date Cheikh Pizano DO PCP - General Internal Medicine 10/19/18
--- OUTSIDE RECORDS SUMMARY | 2024-04-08 10:56 | XMS_ITS | Encounter Summary ---
Author Organization [facility] Address [address] [place] [address] Care Team Providers Care Turbine Engineer Name Role Phone Lani Chirinos MD Primary Care Provider [phone] Williams Adorno MD Unavailable [phone] Encounter Details Date Type Department Care Team (Late st Contact Info) Description 09/28/2013 Therapy Visit [facility] [address] [facility] [address] [place] [address] [place] [address] [facility] [address] [place] [address] Social History Tobacco Use Types [...] on filedocumented in this encounter Care Teams Turbine Engineer Relationship Specialty Start Date End Date Lani Chirinos MD [address] [place] [phone] PCP - General Family Medicine 02/11/13 [place] [id number] [address] Orthopedic Surgery 02/11/13 documented as of this encounter
--- OUTSIDE RECORDS SUMMARY | 2024-04-08 10:56 | XMS_ITS | Clinical Summary ---
Author Organization [facility] Address [address] [place] [address] Care Team Providers Care Fiber Machine Tender Name Role Phone Unavailable Primary Care Provider Unavailabl e Social History Tobacco Use Types Packs/Day Years Used Date Smoking Tobacco: Never Assessed Comments Unknown Sex and Gender Information Value Date Recorded Sex Assigned at Not on file Legal Sex Female 8:24 PM CDT Gender Identity Not on file Sexual Orientation Not on file Plan of Treatment Health Maintenance Due Date Last Done Comments DTaP, Tdap and Td Vaccines ( 1 - Tdap) 1957 Zoster Vaccines (1 of 2) 1988 Pneumococcal Vaccine: 65+ Ye ars (1 of 1 - PCV) 2003 RSV Immunization or 60+ Years (1 - 1-dose 75+ series) 2013 COVID-19 Vaccine ( - 2023-2 5 season) 2023 Influenza Adult (#1) 2023 Meningococcal B Vaccine Aged Out No l onger eligible based on patient's age to complete this topic Meningococcal Vaccine Aged Out No shawn romeo eligible based on patient's age to complete this topic RSV Immunizations Under 20 Months Aged Out No longer eligible based on patient's age to complete this topic
--- OUTSIDE RECORDS SUMMARY | 2024-04-08 10:56 | XMS_ITS | Clinical Summary ---
Author Organization [facility] Address [address] [place] [address] Care Team Providers Care Long Wall Shear Operator Name Role Phone Cheikh Pizano Primary Care Provider [phone] Allergies Active Allergy Reactions Criticality Noted Date [...] PPV23 12/09/2007 Tdap 03/15/2012 ZOSTER LIVE 02/02/2008 Surgical History Surgery Date Site/Laterality Comments OTHER SURGICAL HISTORY 02/23/2007 - 02/23/2008 Right ORIF SHOULDER DISLOCATION W/ HUMERAL FRACTURE 02/23/2006 - 02/22/2007 Left Left Arm Broken 2006 TUBAL LIGATION 1975 Bilateral tubal ligation CERVICAL CONIZATION W/ LASER 1966 Conization BREAST BIOPSY 1998 Right Breast Biopsy KNEE ARTHROPLASTY 09/05/2013 Left 2014 CATARACT EXTRACTION Bilateral Cataract extraction Medical History Medical History Date Comments Hypertension Hypertension Hyperlipidemia Hyperlipidemia Asthma Asthma Osteoarthritis Osteoarthritis Hx Other Medical Migraines Hx Other Medical Heartburn/Reflu x Hx Other Medical Anxiety Disorde r Hx Other Medical Laparoscopic tu bal ligation 1975; Comments: LAMIN 12/22/2014 - Hx Other Medical Bilateral knee replacements; Comments: LAMIN 12/22/2014 - Hx Other Medical Open reduction internal fixation left arm; Comments: LAMIN 12/22/2014 - Family History Medical History Relation Name Comments Colon cancer Father Cancer, colon; /Cancer, colon; Breast cancer Father's Sister Cancer, manda ast; Heart disease Maternal Grandfather Heart Disease; Osteoarthritis Maternal Grandmother Osteo arthritis; Brain cancer Mother Brain tumor; Lung cancer Mother Cancer, lung; / Cancer, lung; Cause of : Cancer, lung Other Other Family history of decent [place]; Relation Name Status Comments Father Alive Father's Sister Maternal Grandfather Alive Maternal Grandmother Alive Mother Other Social History Tobacco Use Types Packs/Day Years [...] on file Legal Sex Female 1:19 AM LAND DEVELOPMENT PROJECT MANAGER Gender Identity Not on file Sexual Orientation Not on file Obstetrics History Last Filed Vital Signs Vital Sign Reading Time Taken Comments Blood Pressure 131/70 04/20/2023 2:00 PM LAND DEVELOPMENT PROJECT MANAGER Pulse 79 04/20/2023 2:05 PM LAND DEVELOPMENT PROJECT MANAGER Temperature 36.1 C (97 F) 04/20/2023 1:38 PM LAND DEVELOPMENT PROJECT MANAGER Respiratory Rate 10 04/20/2023 2:05 PM LAND DEVELOPMENT PROJECT MANAGER Oxygen Saturation 91% 04/20/2023 2:05 PM LAND DEVELOPMENT PROJECT MANAGER Inhaled Oxygen Concentration - - Weight 72.6 kg (160 lb) 04/15/2023 8:20 AM LAND DEVELOPMENT PROJECT MANAGER Height 165.1 cm (5' 5 ) 04/15/2023 8:20 AM LAND DEVELOPMENT PROJECT MANAGER Body Mass Index 26.63 04/15/2023 8:20 AM LAND DEVELOPMENT PROJECT MANAGER Plan of Treatment Health Maintenance Due Date Last Done Comments Depression Screening 1938 Hepatitis B Screening 1956 Well Visit 65+ 2003 Zoster Vaccine (2 of 3) 03/29/2008 02/02/2008 DTaP/Tdap/Td Vaccine (2 - Td or Tdap) 03/15/2022 03/15/2012 Covid-19 Vaccine (3 - 2023-2 5 season) 2023 04/27/2020, 04/06/2020 Influenza Vaccine (#1) 2023 0, 12/02/2018, 12/16/2017, Additional history exists Fall Risk Assessment 04/20/2024 04/20/2023 Pneumococcal vaccine 65+ Completed 12/24/2015, 11/23 Medical Devices Implanted Type Area Belt Cutter Device Identifier Shelf Expiration Date Model / Serial / Lot [employer] Aptus Trilock [id number] 10 Hole Right Distal Volar Radius A-4750.32 - [id number] Implanted:Qty: 1 on 04/20/2023 by Aiden Victor MD at [facility] [place] Right: Radius [employer] A-4750.32 / / [employer] Aptus 2.5mm 12mm Cortical Screw Bone A-5700.12 - [id number] Implanted:Qty: 3 on 04/20/2023 by Aiden Victor MD at [facility] [place] Right: Radius [employer] A-5700.12 / / [employer] 2.5mm 16mm Trilock Hexadrive Wrist Radius Screw Bone A-5750.16/1 - [id number] Implanted:Qty: 2 on 04/20/2023 by Aiden Victor MD at [facility] [place] Right: Radius [employer] A-5750.16/1 / / [employer] Aptus Trilock 2.5mm 18mm Hexadrive 7 Adaptive Wrist Radius A-5750.18/1 - [id number] Implanted:Qty: 4 on 04/20/2023 by Aiden Victor MD at [facility] [place] Right: Radius [employer] A-5750.18/1 / / Insurance [facility]ICARE [facility] MEDICARE [facility] FEDERAL MEDICARE [facility] [employer] Care Teams Long Wall Shear Operator Relationship Specialty Start Date End Date Cheikh Pizano DO PCP - General Internal Medicine 10/19/18
--- OUTSIDE RECORDS SUMMARY | 2024-04-08 10:57 | XMS_ITS | Patient Health Summary ---
Author Organization [facility] Address [address] [address] Care Team Providers Care Centrifugal Machine Tender Name Role Phone Lani Chirinos MD Primary Care Provider [phone] Williams Adorno MD Unavailable [phone] Note from [facility],non-owned Affiliates and Associated Physician Practices is amultiple site organization consisting of ambulatory clinics and hospital sitesin [place], [place], [place] and [place]. This disclosure is being madepursuant to the Care Everywhere program and may not contain all information available regarding this patient. Last updated 17.[facility] Allergies * Hydrocodone(Nausea and/or Vomiting) Medications * Be aware that medications may not be up to date on this document. Alwaysverify current medications with the patient. * lansoprazole, disintegrating, (PREVACID SOLUTAB) 30 MG tablet Take 30 mg by mouth 2 times daily,before breakfast and supper. Take morning of surgery * citalopram (CELEXA) 20 MG tablet Take 20 mg by mouth once daily. * rosuvastatin (CRESTOR) 5 MG tablet Take 5 mg by mouth at bedtime. * losartan (COZAAR) 25 MG tablet Take 25 mg by mouth at bedtime. * SUMAtriptan (IMITREX) 25 MG tablet Take 25 mg by mouth once as needed. * Probiotic Product (PROBIOTIC DAILY PO) Take by mouth. * Cholecalciferol (D3 ADULT PO) Take 1,000 Units by mouth. Stop 10 days before surgery * Cyanocobalamin (B-12) 1000 MCG TBCR Take by mouth once daily. Stop 10 days before surgery * montelukast (SINGULAIR) 10 MG tablet Take 10 mg by mouth at bedtime. * Carvedilol (COREG PO) Take 12.5 mg by mouth. * traMADol (ULTRAM) 50 MG tablet(Started 09/07/2013) Take 1 Tab by mouth every 6 hours as needed. Called to [facility] [phone] * acetaminophen (TYLENOL) 325 MG tablet(Started 09/07/2013) Take 2 Tabs by mouth every 4 hours as needed. Maximum allowable Acetaminophen amount = 4 Grams (4000 mg) / 24 hours. * celecoxib (CELEBREX) 200 MG capsule(Started 10/03/2013) Take 1 Cap by mouth 2 times daily. 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 04/01/2013 Social History Tobacco Use Types Packs/Day Years [...] Mass Index 28.73 09/05/2013 7:04 AM CDT Medical Devices Implanted Type Area Social Worker Masters Device Identifier Shelf Expiration Date Model / Serial / Lot Werner Bone [place] Hv Implanted:Qty: 1 on 09/05/2013 by Williams Adorno MD at [facility] Left: Knee Biomet Inc 12/24/2014 [id number] / / [id number] Butn Thuy Arcom Wire Polyeth Sm 31 X 8mm Implanted:Qty: 1 on 09/05/2013 by Williams Adorno MD at [facility] Left: Knee [employer] Inc 06/23/2018 [id number] / / [id number] Ins Kn Vangurd Fem Cocr L-Intlok 65.0mm Implanted:Qty: 1 on 09/05/2013 by Williams Adorno MD at [facility] Left: Knee [employer] Inc 06/24/2023 [id number] / / [id number] Ty Tibial I Beam Fix Bar 71mm Implanted:Qty: 1 on 09/05/2013 by Williams Adorno MD at [facility] Left: Knee [employer] Inc 05/25/2023 [id number] / / [id number] Brdg Tib Niurka Stbl Implanted:Qty: 1 on 09/05/2013 by Williams Adorno MD at [facility] Left: Knee [employer] Inc 05/24/2018 [id number] / / [id number] Procedures * XR KNEE LEFT 3VW(Performed 10/21/2013) Performed for Osteoarthrosis, unspecified whether generalized or localized, lower leg, Aftercare following joint replacement, Knee joint replacement by other means * CARDIAC HOLTER MONITOR ORDER(Performed 09/09/2013) * CARDIAC EKG ORDER(Performed 09/09/2013) * CARDIAC ECHOCARDIOGRAM COMPLETE ORDER(Performed 09/09/2013) * HGB HCT PANEL(Performed 09/07/2013) * HGB HCT PANEL(Performed 09/06/2013) * NEURAXIAL BLOCK(Performed 09/05/2013) * ARTHROPLASTY TOTAL KNEE(Performed 09/05/2013) Performed for Osteoarthrosis, unspecified whether generalized or localized, lower leg * CULTURE MSSA/MRSA(Performed 08/03/2013) Performed for Pre-op testing * COMPREHENSIVE METABOLIC PANEL(Performed 08/03/2013) Performed for Pre-op testing * CBC W AUTO DIFFERENTIAL(Performed 08/03/2013) Performed for Pre-op testing * EKG 12-LEAD(Performed 08/03/2013) Performed for Pre-op testing * CULTURE MSSA/MRSA(Performed 03/22/2013) Performed for Preoperative examination * CBC W AUTO DIFFERENTIAL(Performed 03/22/2013) Performed for Preoperative examination * COMPREHENSIVE METABOLIC PANEL(Performed 03/22/2013) Performed for Preoperative examination * EKG 12-LEAD(Performed 03/22/2013) Performed for Preoperative examination * XR KNEE BILAT 3VW(Performed 02/11/2013) Performed for Pain in joint, lower leg * DERMATOPATHOLOGY(Performed 11/15/2010) * DERMATOPATHOLOGY(Performed 05/23/2010) * DERMATOPATHOLOGY(Performed 04/29/2010) Results * XR KNEE 3 VW LEFT (10/21/2013 9:30 AM CDT) Anatomical Region Laterality Modality Lower Extremity Radiographic Parris ging Narrative 10/21/2013 9:30 AM CDT Anjana Keys, RT(R) 10/21/2013 9:30 AM See progress notes for results Williams Adorno MD DIAGNOSTIC IMAGING O RDERABLES * CARDIAC HOLTER MONITOR ORDER (09/09/2013 10:35 PM CDT) Scanned Document CARDIAC SERVICES ORD ERABLES * CARDIAC EKG ORDER (09/09/2013 10:35 PM CDT) Scanned Document CARDIAC SERVICES ORD ERABLES * CARDIAC ECHOCARDIOGRAM COMPLETE ORDER (09/09/2013 10:35 PM CDT) Scanned Document ECHO ORDERABLES * (ABNORMAL) HGB HCT PANEL (09/07/2013 3:24 AM CDT) Only the most recent of2 resultswithin the time period is included. Hemoglobin 11.6(L) 12.0 - 15.6 gm/dL 09/07/2013 3:39 AM CDT [facility] Hematocrit 34.5(L) 35.9 - 45.5 % 09/07/2013 3:39 AM CDT [facility] Blood BLOOD SPECIMEN / Unknown 09/07/2013 3:24 AM CDT 09/07/2013 3:31 AM CDT Williams Adorno MD LAB - HEMATOLOGY ORD ERABLES [facility] [address] [place] [address] * NEURAXIAL BLOCK (09/05/2013 8:22 AM CDT) Narrative Behzad Wick APRN-HYACINTH - 09/05/2013 8:22 AM CDT Behzad Wick CRNA 09/05/2013 8:22 AM NEURAXIAL BLOCK Patient Location: OR Pre Procedure Indication: at surgeon's request Anticoagulation /Antithrombosis Status Confirmed: Yes Preanesthetic Checklist: patient identified, IV checked, site marked, risks and benefits discussed, surgical consent verified, monitors and equipment checked, pre-op evaluation done, timeout performed, informed consent obtained and questions answered / anesthesia plan accepted Monitors: BP, Pulse Ox, EKG and ETCO2 Patient Condition: sedated, meaningful contact maintained Patient Position: sitting Procedure Block Performed: spinal Prep: Betadine Sterile Field: sterile gloves, sterile field established, cap/hat and mask Approach: midline Skin Numbed with: lidocaine 1% Spinal Needle Type: Chandra Needle Gauge: 22 G Needle Length: 3.5 in Placement Site: L3-4 Number of Attempts: 1 CSF: free flow Local Anesthetic: bupivacaine 0.75% in dextrose 15 mg Events CSF return Degree of Difficulty: none Position Post Procedure: supine Block Performed by: cy Williams Adorno MD GENERAL ANESTHESIA O RDLYNDSEY * CULTURE MSSA/MRSA (08/03/2013 9:22 AM CDT) Only the most recent of2 resultswithin the time period is included. Pathologist [facility] Culture Negative for MRSA/MSSA 08/04/2013 5:47 PM CDT [facility] Microbiology SPECIMEN FROM NASAL FOSSAE / Unknown 08/03/2013 9:22 AM CDT 08/03/2013 9:45 AM CDT Tres Morrissey MD LAB - MICROBIOLOGY O RDLYNDSEY [facility] [address] [place] [address], [facility] * (ABNORMAL) CBC W AUTO DIFFERENTIAL (08/03/2013 9:22 AM CDT) Only the most recent of2 resultswithin the time period is included. Pathologist [facility] WBC 6.6 4.4 - 10.7 x10^9/L 08/03/2013 9:51 AM CDT [facility] RBC 4.90 3.80 - 5.20 x10^12/L 08/03/2013 9:51 AM CDT [facility] Hemoglobin 14.9 12.0 - 15.6 gm/dL 08/03/2013 9:51 AM CDT [facility] Hematocrit 44.0 35.9 - 45.5 % 08/03/2013 9:51 AM CDT [facility] MCV 89.8 80.7 - 98.3 fl 08/03/2013 9:51 AM CDT [facility] MCH 30.4 26.7 - 34.0 pg 08/03/2013 9:51 AM CDT [facility] MCHC 33.9 30.8 - 35.9 gm/dL 08/03/2013 9:51 AM CDT [facility] Platelet Count 203 153 - 416 x10^9/L 08/03/2013 9:51 AM CDT [facility] RDW-CV 14.7 12.1 - 14.9 % 08/03/2013 9:51 AM CDT [facility] MPV 10.7 9.4 - 12.9 fl 08/03/2013 9:51 AM CDT [facility] Neutrophils % 65.6 44.0 - 73.0 % 08/03/2013 9:51 AM CDT [facility] Lymphocytes % 19.7(L) 20.0 - 43.0 % 08/03/2013 9:51 AM CDT [facility] Monocytes % 11.1 5.0 - 13.0 % 08/03/2013 9:51 AM CDT [facility] Eosinophils % 2.0 0.0 - 6.0 % 08/03/2013 9:51 AM CDT [facility] Basophils % 0.5 0.0 - 2.0 % 08/03/2013 9:51 AM CDT [facility] Immature Granulocytes 1.1(H) 0 - 1 % 08/03/2013 9:51 AM CDT [facility] Neutrophil Absolute 4.36 2.01 - 7.14 x10^9/L 08/03/2013 9:51 AM CDT [facility] Lymphocytes Absolute 1.31 1.07 - 3.94 x10^9/L 08/03/2013 9:51 AM CDT [facility] Monocytes Absolute 0.74 0.26 - 1.07 x10^9/L 08/03/2013 9:51 AM CDT [facility] Eosinophils Absolute 0.13 0 - 0.47 x10^9/L 08/03/2013 9:51 AM CDT [facility] Basophils Absolute 0.03 0 - 0.08 x10^9/L 08/03/2013 9:51 AM CDT [facility] Immature Granulocytes Absolute 0.07(H) 0.00 - 0.06 x10^9/L 08/03/2013 9:51 AM CDT [facility] Blood BLOOD SPECIMEN / Unknown 08/03/2013 9:22 AM CDT 08/03/2013 9:45 AM CDT Tres Morrissey MD LAB - HEMATOLOGY ORD ERABLES [facility] [address] [place] [address] * (ABNORMAL) COMPREHENSIVE METABOLIC PANEL (08/03/2013 9:22 AM CDT) Only the most recent of2 resultswithin the time period is included. Glucose 117(H) 74 - 106 mg/dL 08/03/2013 10:08 AM CDT [facility] Sodium 136 136 - 145 mmol/L 08/03/2013 10:08 AM CDT [facility] Potassium 3.9 3.5 - 5.1 mmol/L 08/03/2013 10:08 AM T [facility] Chloride 103 98 - 107 mmol/L 08/03/2013 10:08 AM T [facility] CO2 25 22 - 31 mmol/L 08/03/2013 10:08 AM CDT [facility] Calcium 9.1 8.5 - 10.1 mg/dL 08/03/2013 10:08 [facility] Anion Gap 8 5 - 15 mmol/L 08/03/2013 10:08 AM CDT [facility] BUN 19 7 - 21 mg/dL 08/03/2013 10:08 AM CDT [facility] Creatinine 0.53 0.50 - 1.30 mg/dL 08/03/2013 10:08 AM CDT [facility] eGFR by MDRD >60 mL/min/1.7 3m2 08/03/2013 10:08 AM T [facility] eGFR by MDRD >60 mL/min/1.7 3m2 08/03/2013 10:08 AM CDT [facility] Alkaline Phosphatase 65 38 - 126 U/L 08/03/2013 10:08 AM CDT [facility] ALT 18 12 - 78 U/L 08/03/2013 10:08 AM CDT [facility] AST 8 5 - 40 U/L 08/03/2013 10:08 AM CDT [facility] Protein Total 6.9 6.4 - 8.2 gm/dL 08/03/2013 10:08 AM CDT [facility] Albumin 3.7 3.4 - 5.0 gm/dL 08/03/2013 10:08 AM CDT [facility] Bilirubin Total 0.8 0.2 - 1.0 mg/dL 08/03/2013 10:08 AM CDT [facility] Blood BLOOD SPECIMEN / Unknown 08/03/2013 9:22 AM CDT 08/03/2013 9:45 AM CDT Tres Morrissey MD [facility] Organization Address City/State/ZIP Co de Phone Number [facility] [address] [place] [address] * EKG 12-LEAD (08/03/2013 8:10 AM CDT) Only the most recent of2 resultswithin the time period is included. Ventricular Rate 61 BPM [facility] Atrial Rate 61 BPM [facility] P-R Interval 168 ms [facility] QRS Duration ms 130 ms [facility] Q-T Interval ms 442 ms [facility] QTC Calculation (Bezet) 444 ms [facility] Calculated P Palmer 5 degrees [facility] Calculated R Palmer -54 degrees [facility] Calculated T Palmer -46 degrees [facility] Interpretation EKG Normal sinus rhythm Right bundle branch block Left anterior fascicular block Bifascicular block Left ventricular hypertrophy with QRS widening T wave abnormality, consider lateral ischemia Abnormal ECG Confirmed by LÓPEZ ROSE MD ([id number]) on 08/03/2013 1:41:37 PM [facility] 08/03/2013 8:10 AM CDT 08/03/2013 1:41 PM CDT Narrative [facility] - 08/03/2013 12:41 PM CDT Procedure Note Document, Scanned - 08/03/2013 12:31 PM CDT Transcriptions Document, Scanned - 08/03/2013 12:34 PM CDT Document, Scanned - 08/03/2013 1:42 PM CDT Tres Morrissey MD ECG ORDERABLES [facility] * XR KNEE BILAT 3 VIEWS (02/11/2013 10:32 AM ADMISSIONS CLERK) Anatomical Region Laterality Modality Lower Extremity Radiographic Parris ging Narrative 02/11/2013 10:35 AM ADMISSIONS CLERK RT Chad(R) 02/11/2013 10:35 AM See progress notes for results Procedure Note Anjana Keys, RT(R) - 02/11/2013 10:33 AM CST See progress notes for results Williams Adorno MD DIAGNOSTIC IMAGING O RDERABLES * PATHOLOGY TISSUE FOR DERMATOLOGY (11/15/2010 12:00 AM CDT) Only the most recent of3 resultswithin the time period is included. Result CASE: [id number] PATIENT: BARBER LION PATHOLOGIC DIAGNOSIS: A. Nose: BASAL CELL CARCINOMA, KERATOTIC TYPE B. Chest: SEBORRHEIC KERATOSIS CLINICAL DATA: A: Recurrent BCC. B: SK. GROSS DESCRIPTION: A: Received is one formalin filled container labeled with the patient's name and designated nose. The specimen consists of a shave biopsy measuring 4x2x1 mm. Jar 0. B: Received is one formalin filled container labeled with the patient's name and designated chest. The specimen consists of a shave biopsy measuring 10x6x1 mm. Jar 0. MICROSCOPIC DESCRIPTION: SPECIMEN A: The dermis is infiltrated by nests of basaloid cells that show peripheral palisading and are associated with fibromyxoid stroma. Both mitotic figures and necrotic cells are identified. There are also areas with squamous differentiation and keratinization within the nests. SPECIMEN B: Sections show an acanthotic lesion composed of relatively uniform keratinocytes. There is hyperkeratosis and pseudo horn cysts formation. Final Diagnosis performed by Lilo Barahona M.D. Electronically signed 11/21/2010 4:30:28PM [facility] Comment: Performed at: Dermatopathology Laboratory [facility] Department of Dermatology [address] [place] [address], Room [address] [place] [address] Phone number: [phone] Toll Free: [phone] FAX: [phone] 11/15/2010 11/20/2010 Historical Provider MD LAB - PATHOLOGY/C YTOLOGY ORDERABLES [facility] [address] [place] [address]. 5[address] Floor Lab [address] [phone] Care Teams Centrifugal Machine Tender Relationship Specialty Start Date End Date Lani Chirinos MD [address] [place] [address] [phone] PCP - General Family Medicine 02/11/13 [place] [id number] [address] Orthopedic Surgery 02/11/13
--- OUTSIDE RECORDS SUMMARY | 2024-04-08 10:57 | XMS_ITS | Referral Summary ---
Author Organization [facility] Address [address] [place] [address] Care Team Providers Care Wet Trimmer Name Role Phone Lani Chirinos MD Primary Care Provider [phone] Williams Adorno MD Unavailable [phone] Source Comments [facility],non-owned Affiliates and Associated Physician Practices is amultiple site organization consisting of ambulatory clinics and hospital sitesin [place], [place], [place] and [place]. This disclosure is being madepursuant to the Care Everywhere program and may not contain all information available regarding this patient. Last updated 17.[facility] Allergies Active Allergy Reactions Criticality Noted Date [...] every 6 hours as needed. Called to [facility] [phone] 09/07/2013 Active acetaminophen (TYLENOL) 325 MG tablet [...] Mass Index 28.73 09/05/2013 7:04 AM CDT Functional Status Functional Status Response Date of [...] person have difficulty concentrating/remembering/making decisions? No 09/05/2013 Plan of Treatment Not on file Medical Devices Implanted Type Area Radiology Rn Device Identifier Shelf Expiration Date Model / Serial / Lot Werner Bone [place] Hv Implanted:Qty: 1 on 09/05/2013 by Williams Adorno MD at [facility] Left: Knee [employer] Inc 12/24/2014 [id number] / / [id number] Thalia Daley Arcom Wire Polyeth Sm 31 X 8mm Implanted:Qty: 1 on 09/05/2013 by Williams Adorno MD at [facility] Left: Knee [employer] Inc 06/23/2018 [id number] / / [id number] Ins Kn Vangurd Fem Cocr L-Intlok 65.0mm Implanted:Qty: 1 on 09/05/2013 by Williams Adorno MD at [facility] Left: Knee [employer] 06/24/2023 [id number] / / [id number] Ty Tibial I Beam Fix Bar 71mm Implanted:Qty: 1 on 09/05/2013 by Williams Adorno MD at [facility] Left: Knee [employer] Inc 05/25/2023 [id number] / / [id number] Brdg Tib Niurka Stbl Implanted:Qty: 1 on 09/05/2013 by Williams Adorno MD at [facility] Left: Knee [employer] Inc 05/24/2018 [id number] / / [id number] Administered Medications Advance Directives * Full Code (Latest Code Status on File) Date Activated Date Inactivated Comments 09/05/2013 11:43 AM 09/08/2013 1:17 PM Care Teams Wet Trimmer Relationship Specialty Start Date End Date Lani Chirinos MD [address] [place] [phone] PCP - General Family Medicine 02/11/13 [place] [address] [address] Orthopedic Surgery 02/11/13
[2024-04-08 17:47] LABS: Add Urine Microscopic? YES; Appearance Urine Cloudy (Clear); Bacteria Urine 4+ /hpf; Bilirubin Urine Negative (Negative); Blood Urine Negative (Negative); Color Urine Yellow (Yellow); Glucose Urine UA Negative (Negative); Ketones Urine Trace mg/dL (Negative); Leukocyte Esterase Ur 1+ LEU/UL (Negative); Nitrate Urine Negative (Negative); Non Pathogenic Casts 0-2; Protein Urine Negative (Negative); RBC Urine 0-2 /hpf (0-2); Specific Grav Ur 1.019 (1.001-1.035); Squamous Epithelial Cell Urine Few /hpf (Few)
[2024-04-08 17:48] LABS: Hematocrit 49.7 % (37.0-47.0); Hemoglobin 15.5 g/dL (12.0-15.0); Mean Corpuscular HGB Conc 31.2 g/dl (32-36); Mean Corpuscular Hemoglobin 30.1 pg (26-34); Mean Corpuscular Volume 96.5 fl (80-100); Mean Platelet Volume 10.9 fl (7.4-10.4); Platelet Count Result 208 k/mm3 (150-375); Red Blood Count 5.15 M/mm3 (4.2-5.4); Red Cell Distribution Width 13.9 % (11.5-14.5); White Blood Count 5.9 K/mm3 (4.5-10.0)
[2024-04-08 17:59] LABS: LDL Cholesterol Direct 94 mg/dL
[2024-04-08 18:14] LABS: Alanine Aminotransferase 11 U/L (6-35); Alkaline Phosphatase 75 U/L (38-126); Anion Gap 9 mmol/L (4-12); Aspartate Amino Transferase 35 U/L (14-36); Bilirubin,Total 0.9 mg/dL (0.2-1.3); Blood Urea Nitrogen 15 mg/dL (7-17); Calcium 9.3 mg/dL (8.4-10.2); Carbon Dioxide 30 mmol/L (22-30); Chloride 100 mmol/L (98-107); Cholesterol 226 mg/dL (0-200); Estimated Glomerular Filt Rate > 60; Glucose 102 mg/dL (65-110); Potassium 4.5 mmol/L (3.4-5.0); Sodium 139 mmol/L (137-145); Triglycerides 55 mg/dL (<150)
[2024-04-08 18:32] LABS: HDL Direct 113 mg/dL
== END 2024-04-08 10:45 | disposition home or self-care (01) ==
LOC: ANHGOSHLAB 10:47
PROVIDERS: PCP Internal Medicine; Visit Provider Nurse Practitioner
DX: R53.83 Other fatigue (principal); E78.5 Hyperlipidemia, unspecified; N39.0 Urinary tract infection, site not specified
CPT/HCPCS: 36415; 80053; 80061; 81001; 85027; 87077; 87086; 87186

== ENCOUNTER 2024-05-09 10:52 | Outpatient (CLI) | payer MEDICARE, BC, SELFPAY ==
--- NOTE | ~2024-05-09 | XR_ITS ---
Clinical Indication: Cough PA and lateral views of the chest: Comparison: 10/07/2012 Findings: The lungs are clear, without evidence of focal consolidation or pleural effusion. Possible COPD. Cardiomediastinal silhouette is within normal limits. Prior ORIF of the left humerus again note d. Impression: Clear lungs. Possible COPD. Reviewed, dictated and finalized at location M. Impression: Clear lungs. Possible COPD.
--- OUTSIDE RECORDS SUMMARY | 2024-05-09 13:23 | XMS_ITS | Referral Summary ---
Author Organization [facility] Address [address] [place] [address] Care Team Providers Care Managing Partner Name Role Phone Lani Chirinos MD Primary Care Provider [phone] Williams Adorno MD Unavailable [phone] Source Comments [facility],non-owned Affiliates and Associated Physician Practices is amultiple site organization consisting of ambulatory clinics and hospital sitesin [place], [place], [place] and [place]. This disclosure is being madepursuant to the Care Everywhere program and may not contain all information available regarding this patient. Last updated 17.[facility] Allergies Active Allergy Reactions Criticality Noted Date [...] every 6 hours as needed. Called to [facility] [phone] 09/07/2013 Active acetaminophen (TYLENOL) 325 MG tablet [...] on file Medical Devices Implanted Type Area Pelletizer Device Identifier Shelf Expiration Date Model / Serial / Lot Werner Bone [place] Hv Implanted:Qty: 1 on 09/05/2013 by Williams Adorno MD at [facility] Left: Knee [employer] Inc 12/24/2014 [id number] / / [id number] Thalia Daley Arcom Wire Polyeth Sm 31 X 8mm Implanted:Qty: 1 on 09/05/2013 by Williams Adorno MD at [facility] Left: Knee [employer] Inc 06/23/2018 [id number] / / [id number] Ins Kn Vangurd Fem Cocr L-Intlok 65.0mm Implanted:Qty: 1 on 09/05/2013 by Williams Adorno MD at [facility] Left: Knee [employer] Inc 06/24/2023 [id number] / / [id number] Ty Tibial I Beam Fix Bar 71mm Implanted:Qty: 1 on 09/05/2013 by Williams Adorno MD at [facility] Left: Knee [employer] Inc 05/25/2023 [id number] / / [id number] Brdg Tib Niurka Stbl Implanted:Qty: 1 on 09/05/2013 by Williams Adorno MD at [facility] Left: Knee [employer] Inc 05/24/2018 [id number] / / [id number] Administered Medications Advance Directives * Full Code (Latest Code Status on File) Date Activated Date Inactivated Comments 09/05/2013 11:43 AM 09/08/2013 1:17 PM Care Teams Managing Partner Relationship Specialty Start Date End Date Lani Chirinos MD [address] [place] [phone] PCP - General Family Medicine 02/11/13 [place] [address] [address] Orthopedic Surgery 02/11/13
--- OUTSIDE RECORDS SUMMARY | 2024-05-09 13:23 | XMS_ITS | Referral Summary ---
Author Organization [facility] Address [address] [place] [address] Care Team Providers Care Mechanical Applications Engineer Name Role Phone Cheikh Pizano Primary Care Provider [phone] Allergies Active Allergy Reactions Criticality Noted Date [...] made. Rupture of biceps tendon 10/18/2008 Immunizations Immunization Administration Dates Next Due Influenza, Quadrivalent, Hig [...] on file Legal Sex Female 1:19 AM VENDING MACHINE OPERATOR Gender Identity Not on file Sexual Orientation Not on file Last Filed Vital Signs Vital Sign Reading Time Taken Comments Blood Pressure 131/70 04/20/2023 2:00 PM VENDING MACHINE OPERATOR Pulse 79 04/20/2023 2:05 PM VENDING MACHINE OPERATOR Temperature 36.1 C (97 F) 04/20/2023 1:38 PM VENDING MACHINE OPERATOR Respiratory Rate 10 04/20/2023 2:05 PM VENDING MACHINE OPERATOR Oxygen Saturation 91% 04/20/2023 2:05 PM VENDING MACHINE OPERATOR Inhaled Oxygen Concentration - - Weight 72.6 kg (160 lb) 04/15/2023 8:20 AM VENDING MACHINE OPERATOR Height 165.1 cm (5' 5 ) 04/15/2023 8:20 AM VENDING MACHINE OPERATOR Body Mass Index 26.63 04/15/2023 8:20 AM VENDING MACHINE OPERATOR Plan of Treatment Not on file Medical Devices Implanted Type Area Industrial Fabric Cutter Device Identifier Shelf Expiration Date Model / Serial / Lot Medartis Inc Aptus Trilock [id number] 10 Hole Right Distal Volar Radius A-4750.32 - [id number] Implanted:Qty: 1 on 04/20/2023 by Aiden Victor MD at [facility] [place] Right: Radius Medartis Inc A-4750.32 / / Medartis Inc Aptus 2.5mm 12mm Cortical Screw Bone A-5700.12 - [id number] Implanted:Qty: 3 on 04/20/2023 by Aiden Victor MD at [facility] Right: Radius [employer] Inc A-5700.12 / / Medartis Inc 2.5mm 16mm Trilock Hexadrive Wrist Radius Screw Bone A-5750.16/1 - [id number] Implanted:Qty: 2 on 04/20/2023 by Aiden Victor MD at [facility] [place] Right: Radius [employer] Inc A-5750.16/1 / / Medartis Inc Aptus Trilock 2.5mm 18mm Hexadrive 7 Adaptive Wrist Radius A-5750.18/1 - [id number] Implanted:Qty: 4 on 04/20/2023 by Aiden Victor MD at [facility] [place] Right: Radius [employer] Inc A-5750.18/1 / / Insurance MEDICARE [facility] [place] [address] [facility] MEDICARE [facility] FEDERAL Member Subscriber Plan / Payer (Ef fective 2015-Present) Name:Mini Lion Relation to Subscriber:Self Name:Mini Lion Payer ID:[id number] (NAIC) Group ID:[id number] Type:[facility] Address: [address] [place] [id number] Care Teams Mechanical Applications Engineer Relationship Specialty Start Date End Date Cheikh Pizano DO PCP - General Internal Medicine 10/19/18
--- OUTSIDE RECORDS SUMMARY | 2024-05-09 13:23 | XMS_ITS | Patient Health Summary ---
Author Organization [facility] Address [address] [place] [address] Care Team Providers Care Jacquard Lace Weaver Name Role Phone Lani Chirinos MD Primary Care Provider [phone] Williams Adorno MD Unavailable [phone] Note from [facility],non-owned Affiliates and Associated Physician Practices is amultiple site organization consisting of ambulatory clinics and hospital sitesin [place], [place], [place] and [place]. This disclosure is being madepursuant to the Care Everywhere program and may not contain all information available regarding this patient. Last updated 17.[facility] Allergies * Hydrocodone(Nausea and/or Vomiting) Medications * [...] 6 hours as needed. Called to [facility] [phone] * acetaminophen (TYLENOL) 325 MG tablet(Started 09/07/2013) [...] AM CDT Medical Devices Implanted Type Area Field Artillery Officer Device Identifier Shelf Expiration Date Model / Serial / Lot Werner Bone [place] Hv Implanted:Qty: 1 on 09/05/2013 by Williams Adorno MD at [facility] Left: Knee Biomet Inc 12/24/2014 [id number] / / [id number] Butn Thuy Arcom Wire Polyeth Sm 31 X 8mm Implanted:Qty: 1 on 09/05/2013 by Williams Adorno MD at [facility] Left: Knee Biomet Inc 06/23/2018 [id number] / / [id number] Ins Kn Vangurd Fem Cocr L-Intlok 65.0mm Implanted:Qty: 1 on 09/05/2013 by Williams Adorno MD at [facility] Left: Knee Biomet Inc 06/24/2023 [id number] / / [id number] Ty Tibial I Beam Fix Bar 71mm Implanted:Qty: 1 on 09/05/2013 by Williams Adorno MD at [facility] Left: Knee Biomet Inc 05/25/2023 [id number] / / [id number] Brdg Tib Niurka Stbl Implanted:Qty: 1 on 09/05/2013 by Williams Adorno MD at [facility] Left: Knee Biomet Inc 05/24/2018 [id number] / / [id number] Procedures * XR KNEE LEFT 3VW(Performed 10/21/2013) [...] - 15.6 gm/dL 09/07/2013 3:39 AM CDT [facility] Hematocrit 34.5(L) 35.9 - 45.5 % 09/07/2013 3:39 AM CDT [facility] Blood BLOOD SPECIMEN / Unknown 09/07/2013 3:24 AM CDT 09/07/2013 3:31 AM CDT Williams Adorno MD LAB - HEMATOLOGY ORD ERABLES [facility] [address] [place] [address] * NEURAXIAL BLOCK (09/05/2013 8:22 AM CDT) [...] resultswithin the time period is included. Pathologist [facility] Culture Negative for MRSA/MSSA 08/04/2013 5:47 PM CDT [facility] Microbiology SPECIMEN FROM NASAL FOSSAE / Unknown 08/03/2013 9:22 AM CDT 08/03/2013 9:45 AM CDT Tres Morrissey MD LAB - MICROBIOLOGY O RDLYNDSEY [facility] [address] [place] [address], [facility] * (ABNORMAL) CBC W AUTO DIFFERENTIAL (08/03/2013 9:22 AM CDT) Only the most recent of2 resultswithin the time period is included. Pathologist [facility] WBC 6.6 4.4 - 10.7 x10^9/L 08/03/2013 9:51 AM CDT [facility] RBC 4.90 3.80 - 5.20 [...] - 1.07 x10^9/L 08/03/2013 9:51 AM CDT [facility] Eosinophils Absolute 0.13 0 - 0.47 x10^9/L 08/03/2013 9:51 AM CDT [facility] Basophils Absolute 0.03 0 - 0.08 x10^9/L 08/03/2013 9:51 AM CDT [facility] Immature Granulocytes Absolute 0.07(H) 0.00 - 0.06 x10^9/L 08/03/2013 9:51 AM CDT [facility] Blood BLOOD SPECIMEN / Unknown 08/03/2013 9:22 AM CDT 08/03/2013 9:45 AM CDT rTes Morrissey MD LAB - HEMATOLOGY ORD ERABLES [facility] [address] [place] [address] * (ABNORMAL) COMPREHENSIVE METABOLIC PANEL (08/03/2013 9:22 AM CDT) Only the most recent of2 resultswithin the time period is included. Glucose 117(H) 74 - 106 mg/dL 08/03/2013 10:08 AM CDT [facility] Sodium 136 136 - 145 mmol/L 08/03/2013 10:08 AM CDT [facility] Potassium 3.9 3.5 - 5.1 mmol/L 08/03/2013 10:08 AM T [facility] Chloride 103 98 - 107 mmol/L 08/03/2013 10:08 AM T [facility] CO2 25 22 - 31 mmol/L 08/03/2013 10:08 AM CDT [facility] Calcium 9.1 8.5 - 10.1 mg/dL 08/03/2013 [facility] Anion Gap 8 5 - 15 mmol/L 08/03/2013 10:08 AM CDT [facility] BUN 19 7 - 21 mg/dL 08/03/2013 10:08 AM CDT [facility] Creatinine 0.53 0.50 - 1.30 mg/dL 08/03/2013 10:08 AM CDT [facility] eGFR by MDRD >60 mL/min/1.7 3m2 08/03/2013 10:08 AM T [facility] eGFR by MDRD >60 mL/min/1.7 [...] Morrissey MD [facility] Organization Address City/State/ZIP Co de Phone Number [facility] [address] [place] [address] * EKG 12-LEAD (08/03/2013 8:10 AM CDT) Only the most recent of2 resultswithin the time period is included. Ventricular Rate 61 BPM [facility] Atrial Rate 61 BPM [facility] P-R Interval 168 ms [facility] QRS Duration ms 130 ms [facility] Q-T Interval ms 442 ms [facility] QTC Calculation (Bezet) 444 ms [facility] Calculated P [place] 5 degrees [facility] Calculated R [place] -54 degrees [facility] Calculated T [place] -46 degrees [facility] Interpretation EKG Normal sinus rhythm Right bundle branch block Left anterior fascicular block Bifascicular block Left ventricular hypertrophy with QRS widening T wave abnormality, consider lateral ischemia Abnormal ECG Confirmed by LÓPEZ ROSE MD ([id number]) on 08/03/2013 1:41:37 PM [facility] 08/03/2013 8:10 AM CDT 08/03/2013 1:41 PM CDT Narrative [facility] - 08/03/2013 12:41 PM CDT Procedure Note Document, Scanned - 08/03/2013 12:31 PM CDT Transcriptions Document, Scanned - 08/03/2013 12:34 PM CDT Document, Scanned - 08/03/2013 1:42 PM CDT Tres Morrissey MD ECG ORDERABLES [facility] * XR KNEE BILAT 3 VIEWS (02/11/2013 10:32 AM JEWELRY FINISHER) Anatomical Region Laterality Modality Lower Extremity Radiographic Parris ging Narrative 02/11/2013 10:35 AM JEWELRY FINISHER RT Chad(R) 02/11/2013 10:35 AM See progress notes for results Procedure Note Anjana Keys, RT(R) - 02/11/2013 10:33 AM CST See progress notes for results Williams Adorno MD DIAGNOSTIC IMAGING O RDERABLES * PATHOLOGY TISSUE FOR DERMATOLOGY (11/15/2010 12:00 AM CDT) Only the most recent of3 resultswithin the time period is included. Result CASE: [id number] PATIENT: BARBER LION PATHOLOGIC DIAGNOSIS: A. Nose: [...] horn cysts formation. Final Diagnosis performed by Llio Barahona M.D. Electronically signed 11/21/2010 4:30:28PM [facility] Comment: Performed at: Dermatopathology Laboratory [facility] Department of Dermatology [address] [place] [address], [address] [place] [address] Phone number: [phone] Toll Free: [phone] FAX: [phone] 11/15/2010 11/20/2010 Historical Provider MD LAB - PATHOLOGY/C YTOLOGY ORDERABLES [facility] [address] [place] [address]. 5[address] Floor Lab [address] [phone] Care Teams Jacquard Lace Weaver Relationship Specialty Start Date End Date Lani Chirinos MD [address] [place] [address] [phone] PCP - General Family Medicine 02/11/13 [place] [id number] [address] Orthopedic Surgery 02/11/13
--- OUTSIDE RECORDS SUMMARY | 2024-05-09 13:23 | XMS_ITS | Clinical Summary ---
Author Organization [facility] Address [address] [place] [address] Care Team Providers Care Transfer And Pumphouse Operator Chief Name Role Phone Lani Chirinos MD Primary Care Provider [phone] Williams Adorno MD Unavailable [phone] Source Comments [facility],non-owned Affiliates and Associated Physician Practices is amultiple site organization consisting of ambulatory clinics and hospital sitesin [place], [place], [place] and [place]. This disclosure is being madepursuant to the Care Everywhere program and may not contain all information available regarding this patient. Last updated 17.[facility] Allergies Active Allergy Reactions Criticality Noted Date [...] every 6 hours as needed. Called to [facility] [phone] 09/07/2013 Active acetaminophen (TYLENOL) 325 MG tablet [...] to complete this topic MENINGOCOCCAL (Group B) VACC INE SHARED DECISION-MAKING Aged Out No longer eligibl e based on patient's age to complete this topic MENINGOCOCCAL GROUPS A/C/Y/W VACCINE Aged Out No longer eligible b ased on patient's age to complete this topic Medical Devices Implanted Type Area Bottom Stainer Device Identifier Shelf Expiration Date Model / Serial / Lot Werner Bone [place] Hv Implanted:Qty: 1 on 09/05/2013 by Williams Adorno MD at [facility] Left: Knee Biomet Inc 12/24/2014 [id number] / / [id number] Carlosn Pat Arcom Wire Polyeth Sm 31 X 8mm Implanted:Qty: 1 on 09/05/2013 by Williams Adorno MD at [facility] Left: Knee Biomet Inc 06/23/2018 [id number] / / [id number] Ins Kn Vangurd Fem Cocr L-Intlok 65.0mm Implanted:Qty: 1 on 09/05/2013 by Williams Adorno MD at [facility] Left: Knee Biomet Inc 06/24/2023 [id number] / / [id number] Ty Tibial I Beam Fix Bar 71mm Implanted:Qty: 1 on 09/05/2013 by Williams Adorno MD at [facility] Left: Knee Biomet Inc 05/25/2023 [id number] / / [id number] Brdg Tib Niurka Stbl Implanted:Qty: 1 on 09/05/2013 by Williams Adorno MD at [facility] Left: Knee Biomet Inc 05/24/2018 [id number] / / [id number] Advance Directives * Full Code (Latest Code Status on File) Date Activated Date Inactivated Comments 09/05/2013 11:43 AM 09/08/2013 1:17 PM Care Teams Transfer And Pumphouse Operator Chief Relationship Specialty Start Date End Date Lani Chirinos MD [address] [place] [phone] PCP - General Family Medicine 02/11/13 [place] [address] [address] [facility] [address] [place] [address] Orthopedic Surgery 02/11/13
--- OUTSIDE RECORDS SUMMARY | 2024-05-09 13:23 | XMS_ITS | Encounter Summary ---
Author Organization [facility] Address [address] [facility] [place] [address] Care Team Providers Care Special Education Associate Name Role Phone Lani Chirinos MD Primary Care Provider [phone] Williams Adorno MD Unavailable [phone] Encounter Details Date Type Department Care Team (Late st Contact Info) Description 01/10/2014 Therapy Visit [facility] Orthopedics [address] [facility] [address] [place] [address] [place] [address] [facility] [address] [place] [address] Social History Tobacco Use Types [...] on filedocumented in this encounter Care Teams Special Education Associate Relationship Specialty Start Date End Date Lani Chirinos MD [address] [place] [phone] PCP - General Family Medicine 02/11/13 [place] [address] [address] Orthopedic Surgery 02/11/13 documented as of this encounter
--- OUTSIDE RECORDS SUMMARY | 2024-05-09 13:23 | XMS_ITS | Encounter Summary ---
Author Organization [facility] Address [address] [facility] [place] [address] Care Team Providers Care Campaign Marketing Specialist Name Role Phone Lani Chirinos MD Primary Care Provider [phone] Williams Adorno MD Unavailable [phone] Encounter Details Date Type Department Care Team (Late st Contact Info) Description 09/28/[address] [facility] Orthopedics [address] [facility] [address] [place] [address] [place] [address] [facility] [address] [place] [address] Social History Tobacco Use Types [...] on filedocumented in this encounter Care Teams Campaign Marketing Specialist Relationship Specialty Start Date End Date Lani Chirinos MD [address] [place] [phone] PCP - General Family Medicine 02/11/13 [place] [address] [address] Orthopedic Surgery 02/11/13 documented as of this encounter
--- OUTSIDE RECORDS SUMMARY | 2024-05-09 13:23 | XMS_ITS | Clinical Summary ---
Author Organization [facility] Address [address] [place] [address] Care Team Providers Care Intelligence Intern Name Role Phone Cheikh Pizano Primary Care Provider [phone] Allergies Active Allergy Reactions Criticality Noted Date [...] on file Legal Sex Female 1:19 AM MASTER CONTROL SUPERVISOR Gender Identity Not on file Sexual Orientation Not on file Obstetrics History Last Filed Vital Signs Vital Sign Reading Time Taken Comments Blood Pressure 131/70 04/20/2023 2:00 PM MASTER CONTROL SUPERVISOR Pulse 79 04/20/2023 2:05 PM MASTER CONTROL SUPERVISOR Temperature 36.1 C (97 F) 04/20/2023 1:38 PM MASTER CONTROL SUPERVISOR Respiratory Rate 10 04/20/2023 2:05 PM MASTER CONTROL SUPERVISOR Oxygen Saturation 91% 04/20/2023 2:05 PM MASTER CONTROL SUPERVISOR Inhaled Oxygen Concentration - - Weight 72.6 kg (160 lb) 04/15/2023 8:20 AM MASTER CONTROL SUPERVISOR Height 165.1 cm (5' 5 ) 04/15/2023 8:20 AM MASTER CONTROL SUPERVISOR Body Mass Index 26.63 04/15/2023 8:20 AM MASTER CONTROL SUPERVISOR Plan of Treatment Health Maintenance Due Date [...] 12/24/2015, 11/23 Medical Devices Implanted Type Area Psychology Clinician Device Identifier Shelf Expiration Date Model / Serial / Lot Nexthink Inc Aptus Trilock [id number] 10 Hole Right Distal Volar Radius A-4750.32 - [id number] Implanted:Qty: 1 on 04/20/2023 by Aiden Victor MD at [facility] [place] Right: Radius Medartis Inc A-4750.32 / / Medartis Inc Aptus 2.5mm 12mm Cortical Screw Bone A-5700.12 - [id number] Implanted:Qty: 3 on 04/20/2023 by Aiden Victor MD at [facility] [place] Right: Radius Medartis Inc A-5700.12 / / Medartis Inc 2.5mm 16mm Trilock Hexadrive Wrist Radius Screw Bone A-5750.16/1 - [id number] Implanted:Qty: 2 on 04/20/2023 by Aiden Victor MD at [facility] [place] Right: Radius Medartis Inc A-5750.16/1 / / Medartis Inc Aptus Trilock 2.5mm 18mm Hexadrive 7 Adaptive Wrist Radius A-5750.18/1 - [id number] Implanted:Qty: 4 on 04/20/2023 by Aiden Victor MD at [facility] [place] Right: Radius Medartis Inc A-5750.18/1 / / Insurance MEDICARE [facility] MEDICARE [facility] FEDERAL MEDICARE [facility] FED[employer]AL Care Teams Intelligence Intern Relationship Specialty Start Date End Date Cheikh Pizano DO PCP - General Internal Medicine 10/19/18
--- OUTSIDE RECORDS SUMMARY | 2024-05-09 13:23 | XMS_ITS | Clinical Summary ---
Author Organization [facility] Address [address] [place] [address] Care Team Providers Care Group Billing Coordinator Name Role Phone Unavailable Primary Care Provider [...]
== END 2024-05-09 10:53 | disposition home or self-care (01) ==
PROVIDERS: PCP Internal Medicine; Visit Provider Internal Medicine
DX: R05.9 Cough, unspecified (principal)
CPT/HCPCS: 71046

== ENCOUNTER 2024-06-30 10:24 | Outpatient (CLI) | payer MEDICARE, BC, SELFPAY ==
--- NOTE | ~2024-06-30 | XR_ITS ---
Lumbosacral Spine: AP and lateral views Clinical History: Pain Findings: There is dextroscoliosis of the thoracolumbar spine. No acute fracture evident. There is se maryam degenerative disc narrowing and severe facet arthropathy throughout the lumbar spine. The sacroi liac joints are normally outlined. Impression: Severe degenerative spondylosis throughout the lumbar spine with levoscoliosis of the thoracolumbar s pine. Reviewed, dictated and finalized at location M. Impression: Severe degenerative spondylosis throughout the lumbar spine with levoscoliosis of the thoracolumbar spine.
--- OUTSIDE RECORDS SUMMARY | 2024-06-30 10:43 | XMS_ITS | Clinical Summary ---
Author Organization [facility] Address [address] [place] [address] Care Team Providers Care Refrigerator Assembler Name Role Phone Cheikh Pizano Primary Care Provider [phone] Allergies Active Allergy Reactions Criticality Noted Date [...] on file Legal Sex Female 1:19 AM RUBBER GOODS INSPECTOR TESTER Gender Identity Not on file Sexual Orientation Not on file Obstetrics History Last Filed Vital Signs Vital Sign Reading Time Taken Comments Blood Pressure 131/70 04/20/2023 2:00 PM RUBBER GOODS INSPECTOR TESTER Pulse 79 04/20/2023 2:05 PM RUBBER GOODS INSPECTOR TESTER Temperature 36.1 C (97 F) 04/20/2023 1:38 PM RUBBER GOODS INSPECTOR TESTER Respiratory Rate 10 04/20/2023 2:05 PM RUBBER GOODS INSPECTOR TESTER Oxygen Saturation 91% 04/20/2023 2:05 PM RUBBER GOODS INSPECTOR TESTER Inhaled Oxygen Concentration - - Weight 72.6 kg (160 lb) 04/15/2023 8:20 AM RUBBER GOODS INSPECTOR TESTER Height 165.1 cm (5' 5 ) 04/15/2023 8:20 AM RUBBER GOODS INSPECTOR TESTER Body Mass Index 26.63 04/15/2023 8:20 AM RUBBER GOODS INSPECTOR TESTER Plan of Treatment Health Maintenance Due Date [...] 12/24/2015, 11/23 Medical Devices Implanted Type Area Audio Visual Tech Device Identifier Shelf Expiration Date Model / Serial / Lot Wizpert Inc Aptus Trilock [id number] 10 Hole Right Distal Volar Radius A-4750.32 - [id number] Implanted:Qty: 1 on 04/20/2023 by Aiden Victor MD at [facility] [place] Right: Radius Medartis Inc A-4750.32 / / Medartis Inc Aptus 2.5mm 12mm Cortical Screw Bone A-5700.12 - [id number] Implanted:Qty: 3 on 04/20/2023 by Aiden Victor MD at [facility] [place] Right: Radius Medartis Inc A-5700.12 / / Medartis Inc 2.5mm 16mm Trilock Hexadrive Wrist Radius Screw Bone A-5750.16/1 - [id number] Implanted:Qty: 2 on 04/20/2023 by Aiden Victor MD at [facility] [place] Right: Radius Medartis Inc A-5750.16/1 / / Medartis Inc Aptus Trilock 2.5mm 18mm Hexadrive 7 Adaptive Wrist Radius A-5750.18/1 - [id number] Implanted:Qty: 4 on 04/20/2023 by Aiden Victor MD at [facility] [place] Right: Radius Medartis Inc A-5750.18/1 / / Insurance MEDICARE [facility] MEDICARE [facility] FEDERAL MEDICARE [facility] [employer] Care Teams Refrigerator Assembler Relationship Specialty Start Date End Date Cheikh Pizano DO PCP - General Internal Medicine 10/19/18
--- OUTSIDE RECORDS SUMMARY | 2024-06-30 10:43 | XMS_ITS | Clinical Summary ---
Author Organization [facility] Address [address] [place] [address] Care Team Providers Care Tank Truck Milk Receiver Name Role Phone Unavailable Primary Care Provider [...] Td Vaccines ( 1 - Tdap) 1957 Pneumococcal Vaccine: 50+ Ye ars (1 of 1 - PCV) 1988 Zoster Vaccines (1 of 2) 1988 RSV Immunization or 60+ Years (1 - 1-dose 75+ series) 2013 COVID-19 Vaccine ( - 2023-2 5 season) 2023 Meningococcal B Vaccine Aged Out No l onger eligible based on patient's age to complete this topic Meningococcal Vaccine Aged Out No shawn romeo eligible based on patient's age to complete this topic RSV Immunizations Under 20 Months Aged Out No longer eligible based on patient's age to complete this topic
--- OUTSIDE RECORDS SUMMARY | 2024-06-30 10:43 | XMS_ITS | Encounter Summary ---
Author Organization [facility] Address [address] [place] [address] Care Team Providers Care Medical Secretary Name Role Phone Lani Chirinos MD Primary Care Provider [phone] Williams Adorno MD Unavailable [phone] Encounter Details Date Type Department Care Team (Late st Contact Info) Description 09/28/2013 Therapy Visit [facility] Orthopedics [address] [facility] [address] [place] [address] [place] [address] [facility] [address] [place] [address] Social History Tobacco Use Types Packs/Day Years Used Date Smoking Tobacco: Never Smokeless Tobacco: Never Alcohol Use Standard Drinks/Week Comments Yes 5.8 (1 standard drink = 0.6 oz p ure alcohol) Comments No Sex and Gender Information Value Date Recorded Sex Assigned at Not on file Legal Sex Female 9:38 AM RECRUITER MANAGER Gender Identity Not on file Sexual Orientation Not on file documented as of this encounter Functional Status * Is person deaf or have serious hearing difficulty? Answer Date of Assessment Author No 09/05/2013 11:30 AM CDT Kateryna Pete RN * Is person blind or have serious difficulty seeing? Answer Date of Assessment Author No 09/05/2013 11:30 AM CDT Kateryna Pete RN * Does person have serious difficulty walking/climbing stairs? Answer Date of Assessment Author No 09/05/2013 11:30 AM CDT Kateryna Pete RN * Does person have difficulty dressing/bathing? Answer Date of Assessment Author No 09/05/2013 11:30 AM CDT Kateryna Pete RN * Does person have difficulty doing errands alone? Answer Date of Assessment Author Yes 09/05/2013 11:30 AM Kateryna Schulz RN documented as of this encounter Mental Status * Does person have difficulty concentrating/remembering/making decisions? Answer Entry Date Author No 09/05/2013 11:30 AM Kateryna Schulz RN documented in this encounter Plan of Treatment Not on file documented as of this encounter Visit Diagnoses Not on filedocumented in this encounter Care Teams Medical Secretary Relationship Specialty Start Date End Date Lani Chirinos MD [address] [place] [phone] PCP - General Family Medicine 02/11/13 [place] [address] [facility] [address] [place] [address] Orthopedic Surgery 02/11/13 documented as of this encounter
--- OUTSIDE RECORDS SUMMARY | 2024-06-30 10:43 | XMS_ITS | Clinical Summary ---
Author Organization [facility] [employer] Address [address] [place] [address] Care Team Providers Care Team Automobile Assembler Name Role Phone Lani Chirinos MD Primary Care Provider [phone] Williams Adorno MD Unavailable [phone] Source Comments [facility],non-owned Affiliates and Associated Physician Practices is amultiple site organization consisting of ambulatory clinics and hospital sitesin [place], [place], [place] and [place]. This disclosure is being madepursuant to the Care Everywhere program and may not contain all information available regarding this patient. Last updated 17.[facility] [employer] Allergies Active Allergy Reactions Criticality Noted Date Comments Hydrocodone Nausea and/or Vomiting 02/11/2013 Medications * Be aware that medications may not be up to date on this document. Alwaysverify current medications with the patient. lansoprazole, disintegrating , (PREVACID SOLUTAB) 30 MG tablet Take 30 [...] Product (PROBIOTIC DAILY PO) Take by mouth. Activ e Cholecalcifero l (D3 ADULT PO) Take 1,000 Units by [...] every 6 hours as needed. Called to [facility] [phone] 4 Active acetaminophen (TYLENOL) 325 MG tablet Take 2 Tabs by mouth every 4 hours as needed. Maximum allowable Acetaminophen amount = 4 Grams (4000 mg) / 24 hours. 4 Active celecoxib (CELEBREX) 200 MG capsule Take 1 Cap by mouth 2 times daily. 60 Cap 5 4 Active Active Problems Problem Noted Date Diagnosed [...] on file Legal Sex Female 9:38 AM DIRECTOR OF REAL ESTATE Gender Identity Not on file Sexual Orientation [...] Last Done Comments BONE DENSITY TESTING 1938 DTAP/TDAP/TD VACCINES (1 - Tdap) 1957 PNEUMOCOCCAL VACCINE 50+ (1 of 1 - PCV) 1988 ZOSTER VACCINE (1 of 2) 1988 Respiratory Syncytial Virus (RSV) Vaccine Pt: or over 60 yrs (1 - 1-dose 75+ series) 2013 COVID-19 VACCINE ( - 2023-2 5 season) 2023 DEPRESSION SCREENING 02/24/2024 INFLUENZA VACCINE (Season Ended) 2024 HEPATITIS B VACCINE Aged Out No longe [...] this topic Medical Devices Implanted Type Area Web Manager Device Identifier Shelf Expiration Date Model / Serial / Lot Werner Bone [place] Hv Implanted:Qty: 1 on 09/05/2013 by Williams Adorno MD at [facility] Left: Knee [employer] Inc 12/24/2014 [id number] / / [id number] Thalia Daley Arcom Wire Polyeth Sm 31 X 8mm Implanted:Qty: 1 on 09/05/2013 by Williams Adorno MD at [facility] Left: Knee [employer] Inc 06/23/2018 [id number] / / [id number] Ins Kn Vangurd Fem Cocr L-Intlok 65.0mm Implanted:Qty: 1 on 09/05/2013 by Williams Adorno MD at [facility] Left: Knee [employer] Inc 06/24/2023 [id number] / / [id number] Ty Tibial I Beam Fix Bar 71mm Implanted:Qty: 1 on 09/05/2013 by Williams Adorno MD at [facility] Left: Knee [employer] Inc 05/25/2023 [id number] / / [id number] Brdg Tib Niurka Stbl Implanted:Qty: 1 on 09/05/2013 by Williams Adorno MD at [facility] Left: Knee [employer] Inc 05/24/2018 [id number] / / [id number] Insurance MEDICARE [facility] Advance Directives * Full Code (Latest Code Status on File) Date Activated Date Inactivated Comments 09/05/2013 11:43 AM 09/08/2013 1:17 PM Care Teams Team Automobile Assembler Relationship Specialty Start Date End Date Lani Chirinos MD [address] [place] [address] [address] [place] [address] PCP - General Family Medicine 02/11/13 [place] [address] [address] [place] [address] Orthopedic Surgery 02/11/13
--- OUTSIDE RECORDS SUMMARY | 2024-06-30 10:43 | XMS_ITS | Referral Summary ---
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 SERVICES OFFICER Gender Identity Not on file Sexual Orientation Not on file Last Filed Vital Signs Vital Sign Reading Time Taken Comments Blood Pressure 131/70 04/20/2023 2:00 PM ADMINISTRATIVE SERVICES OFFICER Pulse 79 04/20/2023 2:05 PM ADMINISTRATIVE SERVICES OFFICER Temperature 36.1 C (97 F) 04/20/2023 1:38 PM ADMINISTRATIVE SERVICES OFFICER Respiratory Rate 10 04/20/2023 2:05 PM ADMINISTRATIVE SERVICES OFFICER Oxygen Saturation 91% 04/20/2023 2:05 PM ADMINISTRATIVE SERVICES OFFICER Inhaled Oxygen Concentration - - Weight 72.6 kg (160 lb) 04/15/2023 8:20 AM ADMINISTRATIVE SERVICES OFFICER Height 165.1 cm (5' 5 ) 04/15/2023 8:20 AM ADMINISTRATIVE SERVICES OFFICER Body Mass Index 26.63 04/15/2023 8:20 AM ADMINISTRATIVE SERVICES OFFICER Plan of Treatment Not on file Medical Devices Implanted Type Area Field Instructor Device Identifier Shelf Expiration Date Model / Serial / Lot [employer]artis Inc Aptus Trilock [id number] 10 Hole Right Distal Volar Radius A-4750.32 - [id number] Implanted:Qty: 1 on 04/20/2023 by Aiden Victor MD at [facility] [place] Right: Radius [employer] Inc A-4750.32 / / Medartis Inc Aptus 2.5mm 12mm Cortical Screw Bone A-5700.12 - [id number] Implanted:Qty: 3 on 04/20/2023 by Aiden Victor MD at [facility] Right: Radius [employer] Inc A-5700.12 / / Medartis Inc 2.5mm 16mm Trilock Hexadrive Wrist Radius Screw Bone A-5750.16/1 - [id number] Implanted:Qty: 2 on 04/20/2023 by Aiden Victor MD at [facility] [place] Right: Radius [employer] Inc A-5750.16/1 / / Medart[employer] Inc Aptus Trilock 2.5mm 18mm Hexadrive 7 Adaptive Wrist Radius A-5750.18/1 - [id number] Implanted:Qty: 4 on 04/20/2023 by Aiden Victor MD at [facility] [place] Right: Radius [employer] Inc A-5750.18/1 / / Insurance MEDICARE [facility] FEDERAL MEDICARE [facility] MEDICARE [facility] FEDERAL Member Subscriber Plan / Payer (Ef fective 2015-Present) Name:Mini Lion Relation to Subscriber:Self Name:Mini Lion Payer ID:[id number] (NAIC) Group ID:[id number] Type:[facility] Address: [address] [place] [id number] Care Teams Owner [employer] Relationship Specialty Start Date End Date Cheikh Pizano DO PCP - General Internal Medicine 10/19/18
--- OUTSIDE RECORDS SUMMARY | 2024-06-30 10:43 | XMS_ITS | Encounter Summary ---
Author Organization [facility] Address [address] [facility] [place] [address] Care Team Providers Care Textbook Associate Name Role Phone Lani Chirinos MD Primary Care Provider [phone] Williams Adorno MD Unavailable [phone] Encounter Details Date Type Department Care Team (Late st Contact Info) Description 01/10/2014 Therapy Visit [facility] Orthopedics [address] [facility] [address] [place] [address] [place] [address] 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
--- OUTSIDE RECORDS SUMMARY | 2024-06-30 10:43 | XMS_ITS | Data Portability ---
Author Organization [place] [employer], Main Office Address [address] [place] [address] Care Team Providers Care Vp Security Name Role Phone MARIO MAJOR Primary Care Provider [phone] MARIO MAJOR Referring Provider [phone] Assessment Encounter Date Assessment Date Assessment LastModified by Organization Details LastModified Time 04/13/2023 04/13/2023 Impression: Patient has a rather severe right distal radius fracture with dorsal angulation residual dorsal translation. There is no intra-articular displacement fortunately which is positive. The distal fragment thickness in the ulnar half the distal radius is very thin due to impaction and loss of cancellous bone I think that a good portion of this cancellous bone lies anterior to the distal fragment. She is otherwise very active in the community. Although vast majority of these fractures 83-year-old we would treat nonsurgically, I think that in her case given the degree of residual displacement the fact that she is very active out in the community the and youthful 83-year-old in otherwise good health, I think that surgical stabilization might give her the best result. Her fracture pattern is rather complex and I would recommend that she be evaluated and treated by 1 of the hand and wrist specialist at [facility] and I will make the referral. 30 minutes were spent in total care this patient with more than half the time spent in [id number] care. I reviewed the CT images with her discussed possible treatment options with respect volar plating possibly external fixation. [email or web address] Not available 04/14/2023 14:15:27 Plan of Treatment Reminders Order Date Submit Date Provider Last Modified By Organization Details Last Modified Time Details Appointments None record ed. Lab None record ed. Referral None record ed. Procedures None record ed. Surgeries None record ed. Imaging None record ed. Medication Orders None record ed. Patient TargetsNo targets recorded. Patient InstructionsNo instructions recorded. Reason for Referral None Reported. Results Created Date Observation Date Name Description Value Unit Range Abnormal Flag Note LastModifiedBy Organization Detail LastModifiedTime 04/13/19 24 04/13/2023 CT, wrist , w/o contr ast No observ ation record ed. [facility] [address], [place], [address], 04/14/2023 09:53:26 04/14/19 24 04/10/2023 XR, wrist No observ ation record ed. [email or web address] Not Available 2023 10:07:16 Result Notes None recorded. Problems Name Problem SNOMED Code Status Onset Date Resolution Date Notes Provider Name and Address Organization Details Recorded Time Acquired trigger finger 4418033 Active Not Available [facility] 3 08:09:22 Urinary incontinen ce 101252606 Active Not Available [facility] 3 08:09:22 Abdominal pain 18140898 Active Not Available [facility] 3 08:09:22 Gastroesop hageal reflux disease 029994130 Active Not Available [facility] 3 08:09:22 Gastroente ritis 64244753 Active Not Available [facility] 3 08:09:22 Involuntar y movement 298226347 Active Not Available [facility] 3 08:09:22 Vitamin D deficiency 85673669 Active Not Available [facility] 3 08:09:22 Depressive disorder 67092921 Active Not Available [facility] 3 08:09:22 Sinusitis 32221481 Active Not Available [facility] 3 08:09:22 Gastritis 1869486 Active Not Available [facility] 3 08:09:22 Anxiety 82588574 Active Not Available [facility] 3 08:09:22 Upper respirator y infection 95733997 Active Not Available [facility] 3 08:09:23 Hyperlipid emia 33270261 Active Not Available [facility] 3 08:09:23 Essential hypertensi on 23966688 Active Not Available [facility] 3 08:09:23 Allergic rhinitis 59745473 Active Not Available [facility] 3 08:09:23 Enteritis of small intestine 04165998 Active Not Available [facility] 3 08:09:23 Urinary tract infectious disease 74829485 Active Not Available [facility] 3 08:09:23 Palpitatio ns 27433720 Active Not Available [facility] 3 08:09:23 Primary cardiomyop athy 38901357 Active Not Available [facility] 3 08:09:23 Pain of right wrist 1556893465585 00 Active 2023 Amberly Graham CMA null, [place] [facility] 4 11:13:48 Pain in right hand 3414845787566 09 Active 2023 JOSUE Barnard null, [place] [facility] 4 14:42:41 Closed fracture of distal end of radius 46990716 Active 2023 Amberly Graham CMA null, [place] [facility] 4 09:42:23 Closed fracture of distal end of radius 47851164 Active 2023 Amberly Graham CMA null, [place] [facility] 4 10:00:03 Problem Notes None recorded. Procedures Surgical History Date Name Laterality Status Provider Name and Address Organization Details Recorded Time Knee Surgery completed JOSUE Barnard [place] [facility] 04/13/2023 14:39:35 Shoulder completed JOSUE Barnard [place] [facility] 04/13/2023 14:39:52 Imaging Results Imaging Date Name Status LastModified by Organiz ation Details LastModified Time 04/13/2023 CT, wrist, w/o contrast completed [address], [place], [address], 04/14/2023 09:53:26 04/10/2023 XR, wrist completed [email or web address] Information no t available 04/14/2023 10:07:16 Procedure Notes None recorded. Medical Equipment None Reported. Allergies Allergen ID Allergen Name Allergen Category Reaction Reaction Severity Criticality Documentation Date Start Date Code Code System Note Provider Name and Address Organization Details Recorded Time hydrocodo ne Not available nausea Not available Not available 04/23/2022 5489 RxNorm Not Available [facility] 3 08:14:01 Medications Name Sig Start Date Stop Date Status Note LastModified by Organization Details LastModified Time amoxicillin 500 mg capsule 05/01 completed Not Available Not Available Not Available carvedilol 6.25 mg tablet 08/02 completed Not Available Not Available Not Available carvedilol 12.5 mg tablet TAKE 1 TABLET BY MOUTH EVERY 12 HOURS WITH FOOD active Not Available Not Available No t Available atorvastati n 10 mg tablet TAKE 1 TABLET BY MOUTH THREE DAYS WEEKLY active Not Available Not Available No t Available cephalexin 250 mg capsule active Not Available Not Available Not Available sertraline 100 mg tablet TAKE 1 TABLET BY MOUTH EVERY DAY active Not Available Not Available No t Available promethazin e 6.25 mg-codeine 10 mg/5 mL syrup TAKE 5ML BY MOUTH EVERY 6 HOURS NEEDED 04/13 completed prn Not Available Not Available Not Available penicillin V potassium 500 mg tablet TAKE 1 TAB BY MOUTH EVERY 6 HOURS UNTILL GONE 04/13 completed Not Available Not Available Not Available metronidazo le 500 mg tablet TAKE 1 TABLET BY MOUTH EVERY 8 HOURS FOR 7 DAYS active Not Available Not Available No t Available ciprofloxac in 500 mg tablet TAKE 1 TABLET BY MOUTH ONCE (ONE TIME DOSE) TAKE 1 HR BEFORE CYSTO APPT active Not Available Not Available No t Available tramadol 50 mg tablet 04/13 completed Not Available Not Available Not Available carvedilol 3.125 mg tablet 08/02 completed Not Available Not Available Not Available Celebrex 200 mg capsule 05/01 completed Not Available Not Available Not Available amoxicillin 875 mg tablet Take 1 tablet twice a day by oral route. active Not Available Not Available No t Available citalopram 20 mg tablet Take 1 tablet(s) every day by oral route for 90 days. active Not Available Not Available No t Available lorazepam 0.5 mg tablet TAKE 1 TABLET BY MOUTH ORALLY TWICE A DAY NEEDED FOR ANXIETY active Not Available Not Available No t Available methocarbam ol 750 mg tablet TAKE 1 TABLET BY MOUTH THREE TIMES A DAY NEEDED FOR BACK PAIN 04/13 completed Not Available Not Available Not Available aspirin 325 mg tablet,china yed release 11/29 completed Not Available Not Available Not Available nitrofurant oin macrocrysta l 100 mg capsule 100 MG ORALLY EVERY 12 HOURS MUST ADMINISTE R WITH A MEAL/FOOD 04/13 completed Not Available Not Available Not Available lisinopril 10 mg tablet active Not Available Not Available Not Available lansoprazol e 30 mg capsule,del ayed release TAKE ONE CAPSULE ONCE active Not Available Not Available No t Available losartan 25 mg tablet TAKE 1 TABLET BY MOUTH EVERY DAY active Not Available Not Available No t Available montelukast 10 mg tablet TAKE 1 TABLET DAILY active Not Available Not Available No t Available ergocalcife rol (vitamin D2) 1,250 mcg (50,000 unit) capsule active Not Available Not Available Not Available polyethylen e glycol 3350 17 gram/dose oral powder active Not Available Not Available Not Available methylpredn isolone 4 mg tablets in a dose pack active Not Available Not Available Not Available ondansetron 4 mg disintegrat ing tablet 04/13 completed Not Available Not Available Not Available sertraline 50 mg tablet TAKE 1 TABLET BY MOUTH EVERY DAY active Not Available Not Available No t Available Lotemax 0.5 % eye drops,suspe nsion INSTILL 1 DROP IN THE LEFT EYE BY OPHTHALMI C ROUTE 2 TIMES PER DAY 04/13 completed Not Available Not Available Not Available amoxicillin 875 mg-potassiu m clavulanate 125 mg tablet TAKE 1 TABLET BY MOUTH TWICE A DAY 04/13 completed Not Available Not Available Not Available Vigamox 0.5 % eye drops 05/01 completed Not Available Not Available Not Available Premarin 0.625 mg/gram vaginal cream 04/13 completed Not Available Not Available Not Available Crestor 5 mg tablet 1 PO DAILY active Not Available Not Available No t Available nitrofurant oin monohydrate /macrocryst als 100 mg capsule TAKE ONE CAPSULE BY MOUTH EVERY 12 HOURS FOR 3 DAYS MUST ADMINISTE R WITH A MEAL/FOOD 04/13 completed Not Available Not Available Not Available Metrogel 1 % topical apply thin layer to affected area prn active prn Not Available Not Available No t Available vitamin D3 25 mcg (1,000 unit)-vit K2 90 mcg disintegrat ing tablet Take 1 tablet every day by oral route. 08/02 completed Not Available Not Available Not Available Vitals Date Recorded Body height Body mass index (BMI) Body weight Provider Name and Address Organization Details Last Updated DateTime 04/13/2023 162.56 cm 28.2 kg/m2 32122.15 g JOSUE Barnard [facility] 04/13/2023 14:42:53 Social History Question Answer Notes LastModified by Organizat ion Details LastModified Time Tobacco Smoking Status Never Smoker JOSUE Barnard null, [facility] [employer] [facility] 04/13/2023 14:39:25 What Is Your Level Of Alcohol Consumption? 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 Mental Status None recorded. Family History Relationship Description Onset Age of this Age Resolved Age Notes LastModified by Organization Details LastModified Time Father Family history of malignant neoplasm Not available 2023 14:38:59 Mother Family history of malignant neoplasm Not available 2023 14:38:59 Unspecified Relation Diabetes mellitus grands on [email or web address] Not available 04/13/2023 14:39:17 Medical History Condition Response ARTHRITIS Y URINARY/BLADDER/KIDNEY PROBLEMS Y HYPERTENSION Y Gynecological HistoryNo gynecological history recorded. Obstetrics History GPAL:G 0 P 0 0 0 0 Immunizations Vaccine Type Date Status Note Provider Nam e and Address Organization Details Recorded Time Influenza, split virus, trivalent, preservative 5 completed Not Available [facility] 04/23/2022 08:13:51 Influenza, split virus, trivalent, preservative 4 completed Not Available [facility] 04/23/2022 08:13:51 Tdap 3 completed Not Available [facility] 04/23/2022 08:13:51 zoster live 8 completed Not Available [facility] 04/23/2022 08:13:52 pneumococcal polysaccharide PPV23 8 completed Not Available [facility] 04/23/2022 08:13:52 Past Encounters Encounter ID Performer Location Encounter Start Date Encounter Closed Date Diagnosis/Indication Diagnosis SNOMED-CT Code Diagnosis ICD10 Code Diagnosis Note [id number] Joe Jett MD [facility] [place] [address] [facility] [address] [place] [address] 04/13/2023 14:07:27 04/14/2023 16:27:39 Pain in right hand 6456374291 46584 M79.641 Health Concerns Section Related Observation LastModified by Organization Detai ls LastModified Time None Recorded Concern Status LastModified by Organization Details LastModified Time None Recorded Advance Directives Directive None Recorded Payers Encounter Date Sequence Insurance Name Policy Number Policy Ferrer Covered Member ID Ferrer Member ID Guarantor Name 04/13/2023 1 [place] Mini Galicia [id number] Mini Galicia 04/13/2023 2 [place] ([place]) 104 Alejandro Galicia [id number] Mini King Grayson Notes Date Note Type Note Provider Name and Address Organization Details Recorded Time 04/13/2023 text/html Patient is an 83-year-old female who is referred by the emergency room for evaluation of her severe right distal radius fracture. She is a patient of Dr. Ankur Major. She fell on her outstretched hand 3 days ago. She was seen emergency room where x-rays demonstrated a severely dorsally displaced right distal radius fracture. She underwent close reduction her finger trap traction had dorsal and volar splints applied. This gave partial correction of deformity. The lateral x-ray views suggests that there is fair amount of bone that is anterior to the distal radial fragment that likely represents displaced cortical cancellous fragments of the volar aspect and central aspect of distal radial fragment. I requested a CT scan be performed. This shows that the distal fragment is very thin continues to be about 25 of dorsal tilt in about 1 cm of dorsal translation and a fairly large mass of cancellous bone again is seen anterior to the distal fragment. Ulnar styloid fracture and scapholunate widening are also noted. Patient denies any numbness or tingling. Her past medical history is significant for prior knee replacements more than 20 years ago and left shoulder replacement by Dr. Wilder at [facility] approximately 15 years ago or more. History of osteoporosis and balance problems. When I asked her if she had any cardiac history she recalls being told she had cardiomyopathy. She had an echocardiogram at [facility] and a copy of this report was present on the electronic medical record [facility] I reviewed this. She was seen Dr. Alla morocho at the time. The report said normal global and regional left ventricular systolic function ejection fraction is 56%. Diastolic indices overall most consistent with grade 1 diastolic dysfunction impaired myocardial relaxation without elevated filling pressures. Normal left ventricular cavity size. Mild concentric left ventricular hypertrophy. Normal appearance of the mitral valve leaflets mild mitral valve regurgitation. Normal tricuspid leaflets [id number] tricuspid regurgitation and mild pulmonary hypertension. This report was generated October 19, 2018. Patient states that that is the only test that she ever had. Joe Jett MD [address] [facility] [place] [address], [place], [address], [place] [facility] [employer] 04/14/2023 14:15:42 OBGyn Episode No OBEpisode recorded.
== END 2024-06-30 10:25 | disposition home or self-care (01) ==
PROVIDERS: PCP Internal Medicine; Visit Provider Nurse Practitioner
DX: M47.896 Other spondylosis, lumbar region (principal)
CPT/HCPCS: 72100

== ENCOUNTER 2024-10-07 10:04 | Outpatient (CLI) | payer MEDICARE, BC, SELFPAY ==
--- OUTSIDE RECORDS SUMMARY | 2024-10-07 10:10 | XMS_ITS | Encounter Summary ---
Author Organization [facility] Address [address] [facility] [place] [address] Care Team Providers Care Fieldwork Coordinator Name Role Phone Lani Chirinos MD Primary Care Provider + [phone] Williams Adorno MD Unavailable +[phone] Encounter Details Date Type Department Care Team (Late st Contact Info) Description 09/28/2013 Therapy Visit [facility] Orthopedics [address] [facility] [address] [place] [address] [place] [address] [facility] [address] [place] [address] Social History Tobacco Use Types Packs/Day Years Used Date Smoking Tobacco: Never Smokeless Tobacco: Never Alcohol Use Standard Drinks/Week Comments Yes 5.8 (1 standard drink = 0.6 oz p ure alcohol) Comments No Sex and Gender Information Value Date Recorded Sex Assigned at Not on file 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
--- OUTSIDE RECORDS SUMMARY | 2024-10-07 10:10 | XMS_ITS | Encounter Summary ---
Author Organization [facility] Address [address] [facility] [place] [address] Care Team Providers Care Press Offbearer Name Role Phone Lani Chirinos MD Primary Care Provider + [phone] Williams Adorno MD Unavailable [phone] Encounter Details Date Type Department Care Team (Late st Contact Info) Description 01/10/2014 Therapy Visit [facility] Orthopedics [address] [facility] [address] [place] [address] [place] [address] [facility] [address] [place] [address] Social History Tobacco Use Types Packs/Day Years Used Date Smoking Tobacco: Never Smokeless Tobacco: Never Alcohol Use Standard Drinks/Week Comments Yes 5.8 (1 standard drink = 0.6 oz p ure alcohol) Comments No Sex and Gender Information Value Date Recorded Sex Assigned at Not on file 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
--- OUTSIDE RECORDS SUMMARY | 2024-10-07 10:10 | XMS_ITS | Clinical Summary ---
Author Organization [facility] Address [address] [facility] [place] [address] Care Team Providers Care Carpenter Supervisor Wooden Ship Name Role Phone Lani Chirinos MD Primary Care Provider [phone] Williams Adorno MD Unavailable [phone] Source Comments [facility],non-owned Affiliates and Associated Physician Practices is amultiple site organization consisting of ambulatory clinics and hospital sitesin [place], [place], [place] and [place]. This disclosure is being madepursuant to the Care Everywhere program and may not contain all information available regarding this patient. Last updated 17.[facility] Allergies Active Allergy Reactions Criticality Noted Date [...] 6 hours as needed. 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 Gender Identity Not on file Sexual Orientation [...] 7:04 AM CDT Height 167.6 cm (5' 6) 09/05/2013 7:04 AM CDT Body Mass Index [...] season) 2023 DEPRESSION SCREENING 02/24/2024 INFLUENZA VACCINE (#1) 2024 HEPATITIS B VACCINE Aged Out No [...] this topic Medical Devices Implanted Type Area Cone Operator Device Identifier Shelf Expiration Date Model / Serial / Lot Werner Bone [place] Hv Implanted:Qty: 1 on 09/05/2013 by Williams Adorno MD at [facility] Left: Knee [employer] Inc 12/24/2014 [id number] / / [id number] Thalia Daley Arcom Wire Polyeth Sm 31 X 8mm Implanted:Qty: 1 on 09/05/2013 by Williams Adorno MD at [facility] Left: Knee [employer] Inc 06/23/2018 [id number] / / [id number] Ins Kn Vangurd Fem Cocr L-Intlok 65.0mm Implanted:Qty: 1 on 09/05/2013 by Williams Adorno MD at [facility] Left: Knee [employer] Inc 06/24/2023 [id number] / / [id number] Ty Tibial I Beam Fix Bar 71mm Implanted:Qty: 1 on 09/05/2013 by Williams Adorno MD at [facility] Left: Knee [employer] Inc 05/25/2023 [id number] / / [id number] Brdg Tib Niurka Stbl Implanted:Qty: 1 on 09/05/2013 by Williams Adorno MD at [facility] Left: Knee Biomet Inc 05/24/2018 [id number] / / [id number] Insurance MEDICARE [facility] Advance Directives * Full Code (Latest Code Status on File) Date Activated Date Inactivated Comments 09/05/2013 11:43 AM 09/08/2013 1:17 PM Care Teams Carpenter Supervisor Wooden Ship Relationship Specialty Start Date End Date Lani Chirinos MD [address] [place] [address] [address] [place] [address] PCP - General Family Medicine 02/11/13 [place] [address] [facility] [address] [place] [address] Orthopedic Surgery 02/11/13
--- OUTSIDE RECORDS SUMMARY | 2024-10-07 10:10 | XMS_ITS | Clinical Summary ---
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 Gender Identity Not on file Sexual Orientation Not on file Obstetrics History Last Filed Vital Signs Vital Sign Reading Time Taken Comments Blood Pressure 131/70 04/20/2023 2:00 PM PRIMER EXPEDITOR AND DRIER Pulse 79 04/20/2023 2:05 PM PRIMER EXPEDITOR AND DRIER Temperature 36.1 C (97 F) 04/20/2023 1:38 PM PRIMER EXPEDITOR AND DRIER Respiratory Rate 10 04/20/2023 2:05 PM PRIMER EXPEDITOR AND DRIER Oxygen Saturation 91% 04/20/2023 2:05 PM PRIMER EXPEDITOR AND DRIER Inhaled Oxygen Concentration - - Weight 72.6 kg (160 lb) 04/15/2023 8:20 AM PRIMER EXPEDITOR AND DRIER Height 165.1 cm (5' 5) 04/15/2023 8:20 AM PRIMER EXPEDITOR AND DRIER Body Mass Index 26.63 04/15/2023 8:20 AM PRIMER EXPEDITOR AND DRIER Plan of Treatment Health Maintenance Due Date Last Done Comments Depression Screening 1940 Osteoporosis Screening-Bone Density Scan 1938 Hepatitis B Screening 1956 Well Visit 65+ 2003 Zoster Vaccine (2 of 3) 03/29/2008 02/02/2008 DTaP/Tdap/Td Vaccine (2 - Td or Tdap) 03/15/2022 03/15/2012 Covid-19 Vaccine (3 - 2023-2 5 season) 2023 04/27/2020, 04/06/2020 Fall Risk Assessment 04/20/2024 04/20/2023 Influenza Vaccine (#1) 2024 0, 12/02/2018, 12/16/2017, Additional history exists Pneumococcal vaccine 65+ Completed 12/24/2015, 11/23 Medical Devices Implanted Type Area Study Assistant Device Identifier Shelf Expiration Date Model / Serial / Lot [employer] Inc Aptus Trilock [id number] 10 Hole Right Distal Volar Radius A-4750.32 - [id number] Implanted:Qty: 1 on 04/20/2023 by Aiden Victor MD at [facility] [place] Right: Radius Medartis Inc A-4750.32 / / Medartis Inc Aptus 2.5mm 12mm Cortical Screw Bone A-5700.12 - [id number] Implanted:Qty: 3 on 04/20/2023 by Aiden Victor MD at [facility] [place] Right: Radius Medartis Inc A-5700.12 / / Medartis Inc 2.5mm 16mm Trilock Hexadrive Wrist Radius Screw Bone A-5750.16/1 - [id number] Implanted:Qty: 2 on 04/20/2023 by Aiden Victor MD at [facility] [place] Right: Radius Medartis Inc A-5750.16/1 / / Medartis Inc Aptus Trilock 2.5mm 18mm Hexadrive 7 Adaptive Wrist Radius A-5750.18/1 - [id number] Implanted:Qty: 4 on 04/20/2023 by Aiden Victor MD at [facility] [place] Right: Radius Medartis Inc A-5750.18/1 / / Insurance MEDICARE [facility] MEDICARE [facility] MEDICARE [facility] FEDERAL Care Teams Chemical Milling Processor Relationship Specialty Start Date End Date Cheikh Pizano DO PCP - General Internal Medicine 10/19/18
[2024-10-07 13:20] LABS: Add Urine Microscopic? YES; Appearance Urine Cloudy (Clear); Glucose Urine UA Negative (Negative); Leukocyte Esterase Ur 2+ LEU/UL (Negative); Nitrate Urine Positive (Negative); Non Pathogenic Casts 0-2; Specific Grav Ur 1.013 (1.001-1.035)
[2024-10-07 13:40] LABS: Alanine Aminotransferase 10 U/L (6-35); Albumin Level 4.0 g/dL (3.5-5.1); Alkaline Phosphatase 77 U/L (38-126); Anion Gap 7 mmol/L (4-12); Aspartate Amino Transferase 30 U/L (14-36); Bilirubin,Total 0.8 mg/dL (0.2-1.3); Blood Urea Nitrogen 11 mg/dL (7-17); Calcium 9.3 mg/dL (8.4-10.2); Carbon Dioxide 28 mmol/L (22-30); Chloride 100 mmol/L (98-107); Cholesterol 210 mg/dL (0-200); Estimated Glomerular Filt Rate > 60; Glucose 107 mg/dL (65-110); HDL Direct 97 mg/dL; Potassium 4.4 mmol/L (3.4-5.0); Sodium 135 mmol/L (137-145); Total Protein 7.0 g/dL (6.3-8.2); Triglycerides 54 mg/dL (<150)
== END 2024-10-07 10:05 | disposition home or self-care (01) ==
PROVIDERS: PCP Nurse Practitioner; Visit Provider Nurse Practitioner
DX: E78.5 Hyperlipidemia, unspecified (principal); R39.9 Unspecified symptoms and signs involving the genitourinary system
CPT/HCPCS: 36415; 80053; 80061; 81001; 87086; 92557; 92567

== ENCOUNTER 2024-10-07 12:59 | Outpatient (CLI) | payer MEDICARE, BC, SELFPAY ==
--- OUTSIDE RECORDS SUMMARY | 2024-10-07 13:01 | XMS_ITS | Clinical Summary ---
Author Organization [facility] Address [address] [place] [address] Care Team Providers Care Shake Loader Name Role Phone Unavailable Primary Care Provider [...]
--- OUTSIDE RECORDS SUMMARY | 2024-10-07 13:01 | XMS_ITS | Encounter Summary ---
Author Organization [facility] Address [address] [place] [address] Care Team Providers Care Outside Machinist Name Role Phone Lani Chirinos MD Primary Care Provider + [phone] Williams Adorno MD Unavailable [phone] Encounter Details Date Type Department Care Team (Late st Contact Info) Description 01/10/2014 Therapy Visit [facility] Orthopedics [address] [facility] [address] [place] [address] [place] [address] 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 [address] [place] [address] Orthopedic Surgery 02/11/13 documented as of this encounter
--- OUTSIDE RECORDS SUMMARY | 2024-10-07 13:01 | XMS_ITS | Encounter Summary ---
Author Organization [facility] Address [address] [facility] [place] [address] Care Team Providers Care Riprap Worker Name Role Phone Lani Chirinos MD Primary Care Provider + [phone] Williams Adorno MD Unavailable [phone] Encounter Details Date Type Department Care Team (Late st Contact Info) Description 09/28/2013 Therapy Visit [facility] Orthopedics [address] [facility] [address] [place] [address] [place] [address] [facility] [address] [place] [address] Social History Tobacco Use Types Packs/Day Years Used Date Smoking Tobacco: Never Smokeless Tobacco: Never Alcohol Use Standard Drinks/Week Comments Yes 5.8 (1 standard drink = 0.6 oz p ure alcohol) Comments No Sex and Gender Information Value Date Recorded Sex Assigned at Not on file 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 [address] [place] [address] Orthopedic Surgery 02/11/13 documented as of this encounter
--- OUTSIDE RECORDS SUMMARY | 2024-10-07 13:01 | XMS_ITS | Clinical Summary ---
Author Organization [facility] [place] Address [address] [facility] [place] [address] Care Team Providers Care Tallow Refiner Name Role Phone Lani Chirinos MD Primary Care Provider [phone] Williams Adorno MD Unavailable [phone] Source Comments [facility],non-owned Affiliates and Associated Physician Practices is amultiple site organization consisting of ambulatory clinics and hospital sitesin [place], [place], [place] and [place]. This disclosure is being madepursuant to the Care Everywhere program and may not contain all information available regarding this patient. Last updated 17.[facility] [place] Allergies Active Allergy Reactions Criticality Noted Date [...] every 6 hours as needed. Called to 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 Gender Identity Not on file Sexual Orientation [...] this topic Medical Devices Implanted Type Area Certified Medical Biller Device Identifier Shelf Expiration Date Model / Serial / Lot Werner Bone [place] Hv Implanted:Qty: 1 on 09/05/2013 by Williams Adorno MD at [facility] Left: Knee Biomet Inc 12/24/2014 [id number] / / [id number] Thalia Daley Arcom Wire Polyeth Sm 31 X 8mm Implanted:Qty: 1 on 09/05/2013 by Williams Adorno MD at [facility] Left: Knee Biomet Inc 06/23/2018 [id number] / / [id number] Ins Kn Vangurd Fem Cocr L-Intlok 65.0mm Implanted:Qty: 1 on 09/05/2013 by Williams Adorno MD at [facility] Left: Knee Biomet Inc 06/24/2023 [id number] / / [id number] Ty Tibial I Beam Fix Bar 71mm Implanted:Qty: 1 on 09/05/2013 by Williams Adorno MD at [facility] Left: Knee Biomet Inc 05/25/2023 [id number] / / [id number] Brdg Tib Niurka Stbl Implanted:Qty: 1 on 09/05/2013 by Williams Adorno MD at [facility] Left: Knee Biomet Inc 05/24/2018 [id number] / / [id number] Insurance MEDICARE [facility] Advance Directives * Full Code (Latest Code Status on File) Date Activated Date Inactivated Comments 09/05/2013 11:43 AM 09/08/2013 1:17 PM Care Teams Tallow Refiner Relationship Specialty Start Date End Date Lani Chirinos MD [address] [place] [address] 40 [place] [address] PCP - General Family Medicine 02/11/13 [place] [address] [facility] [address] [place] [address] Orthopedic Surgery 02/11/13
--- OUTSIDE RECORDS SUMMARY | 2024-10-07 13:01 | XMS_ITS | Clinical Summary ---
Author Organization [facility] Address [address] [place] [address] Care Team Providers Care Elevator Erector Name Role Phone Cheikh Pizano Primary Care Provider [phone] Allergies Active Allergy Reactions Criticality Noted Date [...] on file Legal Sex Female 1:19 AM COLLISION TECHNICIAN Gender Identity Not on file Sexual Orientation Not on file Obstetrics History Last Filed Vital Signs Vital Sign Reading Time Taken Comments Blood Pressure 131/70 04/20/2023 2:00 PM COLLISION TECHNICIAN Pulse 79 04/20/2023 2:05 PM COLLISION TECHNICIAN Temperature 36.1 C (97 F) 04/20/2023 1:38 PM COLLISION TECHNICIAN Respiratory Rate 10 04/20/2023 2:05 PM COLLISION TECHNICIAN Oxygen Saturation 91% 04/20/2023 2:05 PM COLLISION TECHNICIAN Inhaled Oxygen Concentration - - Weight 72.6 kg (160 lb) 04/15/2023 8:20 AM COLLISION TECHNICIAN Height 165.1 cm (5' 5) 04/15/2023 8:20 AM COLLISION TECHNICIAN Body Mass Index 26.63 04/15/2023 8:20 AM COLLISION TECHNICIAN Plan of Treatment Health Maintenance Due Date [...] 12/24/2015, 11/23 Medical Devices Implanted Type Area Sign Wirer Device Identifier Shelf Expiration Date Model / Serial / Lot [employer] Inc Aptus Trilock [id number] 10 Hole Right Distal Volar Radius A-4750.32 - [id number] Implanted:Qty: 1 on 04/20/2023 by Aiden Victor MD at [facility] [place] Right: Radius Medartis Inc A-4750.32 / / Medartis Inc Aptus 2.5mm 12mm Cortical Screw Bone A-5700.12 - [id number] Implanted:Qty: 3 on 04/20/2023 by Aiden Victor MD at [facility] [place] Right: Radius Medartis Inc A-5700.12 / / Medartis Inc 2.5mm 16mm Trilock Hexadrive Wrist Radius Screw Bone A-5750.16/1 - [id number] Implanted:Qty: 2 on 04/20/2023 by Aiden Victor MD at [facility] [place] Right: Radius Medartis Inc A-5750.16/1 / / Medartis Inc Aptus Trilock 2.5mm 18mm Hexadrive 7 Adaptive Wrist Radius A-5750.18/1 - [id number] Implanted:Qty: 4 on 04/20/2023 by Aiden Victor MD at [facility] [place] Right: Radius Medartis Inc A-5750.18/1 / / Insurance MEDICARE [facility] MEDICARE [facility] MEDICARE [facility] FEDERAL Care Teams Elevator Erector Relationship Specialty Start Date End Date Cheikh Pizano DO PCP - General Internal Medicine 10/19/18
== END 2024-10-07 13:00 | disposition home or self-care (01) ==
LOC: ANHAUDASC 13:00
PROVIDERS: PCP Nurse Practitioner; Visit Provider Nurse Practitioner
DX: H90.3 Sensorineural hearing loss, bilateral (principal)
CPT/HCPCS: 92557; 92567

== ENCOUNTER 2024-12-22 11:00 | Outpatient (RCR) | payer MEDICARE, BC, SELFPAY | END 2025-02-16 23:59 | disposition home or self-care (01) | LOC: ANHAUDASC 11:00 | PROVIDERS: PCP Nurse Practitioner; Visit Provider Nurse Practitioner | DX: Z46.1 Encounter for fitting and adjustment of hearing aid (principal) | CPT/HCPCS: 99199; V5261 ==